=== PATIENT | female | born 1945 | race Caucasian/White ===

== ENCOUNTER 2017-10-15 09:18 | Day surgery (SDC) | payer MEDICARE, OTHER, SELFPAY ==
--- NOTE | 2017-10-13 08:08 | EKG12_ITS ---
Test Reason : PRE-OP Blood Pressure : / mmHG Vent. Rate : 057 BPM Atrial Rate : 057 BPM P-R Int : 164 ms QRS Dur : 086 ms QT Int : 438 ms P-R-T Axes : 008 001 022 degrees QTc Int : 426 ms Sinus bradycardia Otherwise normal ECG Confirmed by ADRIANNE GALAVIZ, GISELLE ([id number]), news video editor KRISH HANSEN ([id number]) on 10/14/2017 1:55:20 PM Referred By: Romain Arboleda Confirmed By:GISELLE SILVER MD
[2017-10-13 09:05] LABS: Hemoglobin 13.9 g/dl (12.0-15.0); Mean Corp Hgb Conc 33.1 g/gl (32-36); Mean Corpuscular Hgb 30.5 pg (27.0-32.0); Mean Corpuscular Volume 92.3 fL (81-99); Mean Platelet Vol. 10.2 fl (6.2-12.0); Platelet Count 269 K/mm3 (150-450); RBC Distribution Width CV 13.6 % (11.6-14.6); RBC Distribution Width SD 44.6 fl (35.1-43.9); Red Blood Count 4.55 M/mm3 (4.2-5.4); White Blood Count 4.7 K/mm3 (4.4-11.0)
[2017-10-13 09:18] LABS: Scan Indicated on CBC? Y/N NO
[2017-10-13 09:19] LABS: Anion Gap 7 (5-15); BUN 20 mg/dL (7-18); BUN/Creat Ratio 24.3 RATIO (10-20); Calcium,Total 9.3 mg/dL (8.5-10.1); Chloride 107 mmol/L (98-107); Creatinine, Serum 0.82 mg/dL (0.55-1.02); EST Glomerular Filtration Rate 73 mL/min (>60); Est Glom Filt Rate - Afr Amer 88 mL/min (>60); Glucose 96 mg/dL (74-106); Potassium 4.2 mmol/L (3.5-5.1); Sodium Level 140 mmol/L (136-145)
[2017-10-13 09:46] LABS: Pregnancy, Serum, hCG Quali. NEGATIVE Negative (0-9 Nonpreg)
[2017-10-15] VITALS (7 sets, daily range): BP systolic 137–152; BP diastolic 62–81; PULSE 45–61; RESP 14–16; TEMP 36.3–36.6; O2SAT 97–100; BMI 29.8
--- NOTE | 2017-10-15 | MASS_PTH ---
PATIENT: EFREN WHIPPLE LOC: [facility] [place] U#:[id number] AGE/SX: 72/F ROOM: RE10/15/[address]: Dr. Romain Arboleda MD : 1945 BED: DIS: 10/15/2017 SPEC #: [id number] RECD: 10/15/17 12:15 STATUS: DAVID SANCHO #: [id number] LOUISE: 10/15/17 00:[address]: Romain Arboleda DEPT: SURGICAL PATHOLOGY RECD BY: Melinda Hawkins ENTERED: 10/15/17 13:29 SP TYPE: Mass OTHR DR: Dr. Irene Rivas, DO Tissues: A - Left breast, NOS B - Left breast, NOS Procedures: Surgery Specimen Level IV Surgery Specimen Level V HEADER OPERATION: Breast, biopsy, NL PRE-OP DIAGNOSIS: Intraductal papilloma of left breast TISSUE SUBMITTED: A ? Left breast mass, short suture superior, wire lateral, B ? Left breast biopsy, clip jj lateral margin of incision MICROSCOPIC DIAGNOSIS A. Left breast mass, lumpectomy: Intraductal papilloma. Focal intraductal hyperplasia with atypia. Fibrocystic change. Intraductal hyperplasia without atypia. Fibrosis, mild chronic inflammation and associated reactive change. B. Left lateral breast, lateral margin, excision: No pathologic change. No evidence of malignancy. AM:[place] 10/17/17 COMMENT Case has been reviewed in consultation with Dr. Walden who concurs with the above diagnosis. IDC:SJ MICROSCOPIC DESCRIPTION Microscopically, the papilloma focally extends to the inked and cauterized anterior margin of excision. GROSS DESCRIPTION A - Received fresh for OT consultation labeled with the patient's name is a specimen designated left breast mass. The specimen consists of an irregular fragment of mar-yellow fibrofatty tissue measuring 4 x 4 x 1 cm and weighing 11.6 gm. The specimen is differentially inked as follows: medial ? green, lateral ? black, superior ? blue, inferior ? red, anterior ? yellow and posterior ? orange. The specimen is serially sectioned to reveal a cystic mar lesion measuring 0.8 x 0.5 x 0.5 cm. The lesion is located 0.5 cm from its closest (anterior) margin of resection. The proximity of the lesion to the closest margin is conveyed to the surgeon intraoperatively. Within the cystic lesion is a metallic tracer clip. No other mass lesions are identified. The specimen is serially sectioned and totally submitted in eight cassettes as follows: 1 ? lesion with anterior margin, 2 ? lesion with inferior margin, 3 & 4 ? lesion, 5-8 ? remainder of specimen. B - Received in fixative is one container labeled with the patient's name and designated left breast biopsy, clip jj lateral margin of incision. The specimen consists of an irregular fragment of yellow fatty tissue measuring 1.5 x 0.5 x 0.2 cm. A metallic clip is present on one surface. The surface is inked in black ink. The specimen is bisected and totally submitted in one cassette. / AM:[place] 10/16/17 TC:1 CPT: 16296, 49486, 91546
--- NOTE | 2017-10-15 10:00 | HPBI_ITS ---
SURGICAL BREAST SPECIMEN RADIOGRAPH CLINICAL: Document presence of calcifications in biopsy specimen. FINDINGS: Specimen shows presence of calcifications. Electronically Signed: Wenceslao Neil MD at 13:49 EST Tel [phone], Service support , HPBI/Breast Biopsy Specimen
--- NOTE | 2017-10-15 11:36 | DCINST_ITS ---
Discharge Diet: No Restrictions Discharge Activity: Return to Normal Activity May shower in (days): 1 Remove Dressing in (days):: 1 Additional Instructions: May remove the bulky tape dressing tomorrow. You may shower over the plastic dressing. You may leave the plastic dressing on for 3 days. He may then remove the Steri-Strips after an additional 1 week Allergies/Adverse Reactions: Allergies Penicillins Allergy (Mild, Verified 10/08/17 14:27) rash Sulfa (Sulfonamide Antibiotics) Allergy (Mild, Verified 10/08/17 14:27) rash Medications to take at Discharge levothyroxine 100 mcg tablet 0.025 mg PO QDAY tab 09/18/17 losartan 50 mg tablet 50 mg PO BID 09/18/17 mesalamine ER 0.375 gram capsule,extended release 24 hr 1.5 g PO QAM 09/18/17 metoprolol succinate ER 50 mg tablet,extended release 24 hr 50 mg PO DAILY 09/18 multivitamin capsule 1 cap PO QDAY 09/18/17 Cholecalciferol (Vitamin D3) [Vitamin D3] 2,000 unit PO DAILY 10/08/17 Pantoprazole Sodium [Protonix] 40 mg PO DAILY 10/08/17 Pravastatin Sodium 40 mg PO QHS 10/08/17 Hydrocodone Bitart/Apap 5-325 [[place] 5MG-325MG] 1 tablet PO Q6H PRN PRN 3 Days # 5 tablet 10/15/17 The following prescriptions were given: Hydrocodone Bitart/Apap 5-325 [[place] 5MG-325MG] 1 tablet PO Q6H PRN PRN 3 Days # 5 tablet PRN Reason: Pain Primary Care Physician: Irene Rivas DO [Primary Care Provider] - Please Follow Up With: Romain Arboleda MD - [phone] When: Please call for an appointment to be seen in approximately 10 days
--- NOTE | 2017-10-15 11:38 | OP.PCM_ITS ---
Problem List (1) Intraductal papilloma of left breast Status: Acute Report of Operation Date of Procedure: 10/15/17 Pre-Operative Diagnosis: Left breast 3 o'clock intraductal papilloma Post-Operative Diagnosis: Same Surgery/Procedure Performed:: Stereotactic wire localization left breast with subsequent excisional biopsy Description of Surgical Findings:: Timeout and informed consent was obtained 72-year-old female was taken to the stereotactic room. She was placed prone on the table. The left breast was placed in a lateral medial view. A marking clip in question was rapidly identified. Stereotactic images were obtained. A single target site was selected. The breast was prepped with Betadine. 1% lidocaine was used as local anesthetic. 20-gauge [facility] needle was advanced to depth +15 mm. Follow-up on fast and cc view was obtained demonstrating good localization. There was no apparent complication and she tolerated the procedure well. She is subsequent taken the operating for planned definitive fixation. Patient was taken to the operating room. She was placed on the table. General general anesthesia. The left breast was sterilely prepped and draped. A curvilinear incision was made in the lateral aspect of the areola sharp dissection carried down through the substance tissue the wire was identified. The tissue close to the tip of the wire was circumferentially completely dissected free with electrocautery. Complete hemostasis was intact. Specimen mammograms obtained demonstrating the previously placed marking clip to be centered within the specimen. There were microcalcifications associated with specimen as well. Palpation and visual inspection failed to reveal any residual tissue. The wound was closed with deep layer of interrupted 3-0 Vicryl. The skin edges proximate interrupted 4-0 Monocryl subdermal stitches. Skin prep Steri-Strips Telfa OpSite bulky dry dressings applied. The sandra- incisional area was anesthetized with 30 cc of 0.25% Marcaine. Sponge instrument and needle counts were reported to the surgeon be correct. Specimens in the the breast mass. Drains none. Blood loss minimal. No complications. Romain Arboleda M.D., F.A.C.S.
[2017-10-15] MEDS: Bupivacaine 0.25% 30 ML Vial (12:01)
== END 2017-10-15 14:17 | disposition home or self-care (01) ==
LOC: SDC 09:19 → AC 09:20
PROVIDERS: Family Provider Internal Medicine; PCP Internal Medicine; Visit Provider Surgery
PROC: (CPT 19125; principal; 2017-10-15 11:15)
DX: D24.2 Benign neoplasm of left breast (principal); N60.92 Unspecified benign mammary dysplasia of left breast; N60.12 Diffuse cystic mastopathy of left breast; I49.3 Ventricular premature depolarization; I10 Essential (primary) hypertension; K51.90 Ulcerative colitis, unspecified, without complications; K21.9 Gastro-esophageal reflux disease without esophagitis; E78.00 Pure hypercholesterolemia, unspecified; E89.0 Postprocedural hypothyroidism; M19.90 Unspecified osteoarthritis, unspecified site; Z79.899 Other long term (current) drug therapy
CPT/HCPCS: 19125; 19281; 36415; 76098; 80048; 84703; 85027; 88305; 88307; 93005; J7120

== ENCOUNTER → 2017-12-24 09:58 | Outpatient (CLI) | payer MEDICARE, OTHER, SELFPAY ==
--- NOTE | 2017-12-24 10:10 | US_ITS ---
STUDY: RENAL ULTRASOUND - COMPLETE REASON FOR EXAM: Female, 72 years old. Renal cysts. TECHNIQUE: Ultrasound evaluation of the kidneys was performed with real-time and static avalos-scale imaging. COMPARISON: 12/24/2016. FINDINGS: RIGHT KIDNEY: Normal location of the right kidney, which is normal in size. The right kidney measures 14.5 x 5.4 x 6.5 cm. There is a normal cortex of the right kidney. The renal cortex measures 1.6 cm. Multiple right renal cysts are seen measuring as much as 7.8 cm, grossly stable. There are no right renal calculi. There is no right hydronephrosis. DISTAL RIGHT URETER: There is non-visualization of the distal right ureter. There is no demonstrated right ureterovesical junction calculus. There is no demonstrated right ureteral jet. LEFT KIDNEY: Normal location of the left kidney, which is normal in size. The left kidney measures 10.5 x 4.3 x 5.3 cm. There is a normal cortex of the left kidney. The renal cortex measures 1.4 cm. Multiple right renal cysts are seen measuring as much as 2.0 cm, grossly stable. There are no left renal calculi. There is no left hydronephrosis. DISTAL LEFT URETER: There is non-visualization of the distal left ureter. There is no demonstrated left ureterovesical junction calculus. There is no demonstrated left ureteral jet. BLADDER: Incompletely distended. There is a normal wall thickness of the distended urinary bladder. There is no demonstrated mass within the urinary bladder. There are no demonstrated bladder calculi. US/Kidney and Bladder IMPRESSION: Essentially stable simple renal cysts, which do not necessarily need additional follow-up. No acute abnormalities. Electronically Signed: Joel Gray MD at 19:16 EDT , Service support ,
[2017-12-24 11:01] LABS: Albumin, Serum 3.7 g/dL (3.2-5.0); BUN 19 mg/dL (7-18); BUN/Creat Ratio 24.6 RATIO (10-20); Calcium,Total 9.2 mg/dL (8.5-10.1); Chloride 106 mmol/L (98-107); Creatinine, Serum 0.77 mg/dL (0.55-1.02); EST Glomerular Filtration Rate 79 mL/min (>60); Est Glom Filt Rate - Afr Amer 95 mL/min (>60); Glucose 99 mg/dL (74-106); Phosphorus 2.8 mg/dL (2.5-4.9); Potassium 4.4 mmol/L (3.5-5.1); Sodium Level 139 mmol/L (136-145)
== END ==
PROVIDERS: Family Provider Internal Medicine; PCP Internal Medicine; Visit Provider Internal Medicine Nephrology
DX: N28.1 Cyst of kidney, acquired (principal)
CPT/HCPCS: 36415; 76770; 80069

== ENCOUNTER → 2017-12-30 10:14 | Outpatient (CLI) | payer MEDICARE, OTHER, SELFPAY ==
--- NOTE | 2017-12-30 10:30 | BD_ITS ---
STUDY: DUAL ENERGY X-RAY ABSORPTIOMETRY / DXA REASON FOR EXAM: Female, 72 years old. Postmenopausal female. History of hormone therapy and intermittent steroid use. TECHNIQUE: Bone Mineral Density (BMD) measurements of lumbar spine and bilateral hips were obtained. COMPARISON: April 23, 2012. FINDINGS: Lumbar Spine (L1-L3): g/cm2 (0.969) / T-score (-1.9) / Z-score (-0.3) Findings are suggestive of osteopenia with a moderate fracture risk. Left Femur Total: g/cm2 (0.934) / T-score (-0.6) / Z-score (0.9) Left Femoral Neck: g/cm2 (0.870) / T-score (-1.2) / Z-score (0.5) Right Femur Total: g/cm2 (0.894) / T-score (-0.9) / Z-score (0.6) Right Femoral Neck: g/cm2 (0.870) / T-score (-1.2) / Z-score (0.5) The T-Scores on the most recent prior examination were: Lumbar Spine (L1-L4): There has been worsening of bone density since the previous examination of -7%. Left Femur Total: There is a worsening of bone mineral density of -1.7%. Right Femur Total: There is a worsening of bone mineral density of -4.7%. BD/Dexa Bone Density Study IMPRESSION: The patient is considered osteopenic as outlined below according to World Prakash Organization (WHO) criteria with a moderate fracture risk. There has been worsening of bone density since the previous examination. Reference Information: The T-score is the number of standard deviations above or below the standard which is normal for young adults at their peak bone mineral density. The World Health Organization (WHO) interprets the T-scores as follows: Above -1 Normal bone density Between -1 and -2.5 Osteopenia Equal to / or below -2.5 Osteoporosis As a practical clinical guideline, osteopenia may be graded as follows: Mild -1 through -1.5 Moderate -1.6 through -2.0 Severe -2.1 through -2.4 The Z-score is the number of standard deviations above or below age-matched controls. A Z-score of less than -1.5 would be considered abnormal. References: 1. NIH Osteoporosis and Related Bone Diseases http://www.osteo.org 2. International Society for Clinical Densitometry http://www.iscd.org 3. National Osteoporosis Foundation http://www.nof.org Electronically Signed: Dougie Garcia DO at 18:22 EDT Tel [phone], Service support ,
== END ==
PROVIDERS: Family Provider Internal Medicine; PCP Internal Medicine; Visit Provider Internal Medicine
DX: Z78.0 Asymptomatic menopausal state (principal)
CPT/HCPCS: 77080

== ENCOUNTER → 2019-01-19 09:07 | Outpatient (CLI) | payer MEDICARE, OTHER, SELFPAY ==
--- NOTE | 2019-01-19 09:10 | US_ITS ---
STUDY: RENAL ULTRASOUND - COMPLETE REASON FOR EXAM: Female, 73 years old. PCOS TECHNIQUE: Ultrasound evaluation of the kidneys was performed with real-time and static avalos-scale imaging. COMPARISON: Prior study of 12/24/2017 FINDINGS: RIGHT KIDNEY: Normal location of the right kidney, which is normal in size. The right kidney measures 14.2 x 5.4 x 5.1 cm. There is a normal cortex of the right kidney. The renal cortex measures 1.0 cm. There are multiple right renal cysts. The largest is located in the inferior pole measuring 8.3 x 7.2 x 6.7 cm. The second largest is located in the superior pole measuring 2.5 x 2.3 x 2.0 cm. There are no right renal calculi. There is no right hydronephrosis. DISTAL RIGHT URETER: There is non-visualization of the distal right ureter. There is no demonstrated right ureterovesical junction calculus. There is a visualized right ureteral jet. LEFT KIDNEY: Normal location of the left kidney, which is normal in size. The left kidney measures 10.1 x 4.3 x 5.6 cm. There is a normal cortex of the left kidney. The renal cortex measures 1.1 cm. 2 left renal cysts are noted, one located in the upper pole measuring 2.5 x 2.0 x 1.8 cm, and a second in the superior pole measuring 1.4 x 1.3 x 1.0 cm. There is a 0.5 x 0.4 x 0.3 cm calculus of the lower pole. There is no left hydronephrosis. DISTAL LEFT URETER: There is non-visualization of the distal left ureter. There is no demonstrated left ureterovesical junction calculus. There is a visualized left ureteral jet. BLADDER: The distended urinary bladder has a volume of 561 ml. There is a normal wall thickness of the distended urinary bladder. Bladder wall thickness is 4.4 mm. There is no demonstrated mass within the urinary bladder. There are no demonstrated bladder calculi. US/Kidney and Bladder IMPRESSION: Bilateral renal cysts, similar to the previous study. Nonobstructing left nephrolithiasis. Electronically Signed: Huber Jimenez MD at 23:29 EDT , Service support ,
== END ==
PROVIDERS: Family Provider Internal Medicine; PCP Internal Medicine; Referring Provider Internal Medicine; Visit Provider Internal Medicine
DX: E28.2 Polycystic ovarian syndrome (principal)
CPT/HCPCS: 76770

== ENCOUNTER → 2019-07-19 09:43 | Outpatient (CLI) | payer MEDICARE, OTHER, SELFPAY ==
--- NOTE | 2019-07-19 09:51 | RAD_ITS ---
HISTORY: LBP X 3 MONTHS, NO TRAUMA TECHNIQUE: Lumbar spine 5 views Number of images including paperwork: 5 COMPARISON: 02/15/2016 FINDINGS: VERTEBRAE: No acute fracture. Bilateral L5 spondylolysis. VERTEBRAL ALIGNMENT: No traumatic subluxation. Approximate 1 cm of anterolisthesis of L5 on S1. DISKS AND JOINTS: Advanced discogenic degenerative changes at L5-S1. Mild discogenic degenerative changes elsewhere in the lumbar spine. Facet arthropathy, most severe from L4-S1. SOFT TISSUES: Vascular calcifications. RAD/L/S Spine Min 4 Views IMPRESSION: 1. No acute osseous abnormality. 2. Bilateral L5 spondylolysis with spondylolisthesis in degenerative changes at L5-S1. Findings are similar to previous. at 6799 Reported and signed by: Katherine Hong MD Electronically Signed: Katherine Hnog MD at 23:09 EST Tel , Service support ,
--- NOTE | 2019-07-19 09:52 | RAD_ITS ---
HISTORY: TAILBONE PAIN X 3 MONTHS, NO TRAUMA ADDITIONAL HISTORY: None provided. COMPARISON: 02/15/2016 TECHNIQUE: Sacrum and coccyx 3 views Number of images including paperwork: 3 FINDINGS: BONES: No acute fracture. Bilateral L5 spondylolysis. JOINTS: No traumatic subluxation. Anterolisthesis of L5 on S1 measuring about 12 mm, similar to previous. Degenerative changes at L5-S1 appear similar. Moderate degenerative changes of the sacroiliac joints. SOFT TISSUES: No distinct foreign body. RAD/Sacrum-Coccyx min 2 Views IMPRESSION: 1. Degenerative changes without acute osseous abnormality. 2. Bilateral L5 spondylolysis with spondylolisthesis, similar to previous. at 2239 Reported and signed by: Katherine Hong MD Electronically Signed: Katherine Hong MD at 22:39 EST Tel , Service support ,
== END ==
PROVIDERS: Family Provider Internal Medicine; PCP Internal Medicine; Referring Provider Internal Medicine; Visit Provider Internal Medicine
DX: M53.3 Sacrococcygeal disorders, not elsewhere classified (principal)
CPT/HCPCS: 72110; 72220

== ENCOUNTER → 2019-08-26 07:31 | Outpatient (CLI) | payer MEDICARE, OTHER, SELFPAY ==
--- NOTE | 2019-08-26 08:56 | BI_ITS ---
MAMMOGRAPHY - BILATERAL SCREENING 3-D TOMOSYNTHESIS REASON FOR EXAM: Female, 73 years old. Routine annual screening. PERTINENT HISTORY: No significant family history. TECHNIQUE: 2-D mammograms and 3-D Tomosynthesis of the breast (s) were performed. CAD was performed. COMPARISON: September 10, 2017, July 08, 2016 FINDINGS: The breast composition is heterogeneously dense that can obscure small breast masses. Scattered benign calcifications are seen. No dense spiculated masses or suspicious microcalcifications are identified. No architectural distortion is identified. There is no skin thickening or retraction. Stable lymph nodes. There has been no significant change since the prior study. BI/SCREEN MAMM (CAD) W/OLIMPIA BILAT IMPRESSION: No mammographic signs of malignancy. Routine yearly mammograms recommended. ASSESSMENT CATEGORY: BIRADS Category 2: Benign. A letter regarding these results will be sent to the patient by the facility within 30 days. FOLLOW UP RECOMMENDATION: Yearly follow up mammogram recommended. (A) Approximately 10% of breast cancers are not detected by mammography. A normal mammogram should not delay biopsy of a clinically suspicious abnormality. Electronically Signed: Chandana Pérez MD at 13:09 EST , Service support ,
== END ==
PROVIDERS: Family Provider Internal Medicine; PCP Internal Medicine; Referring Provider Internal Medicine; Visit Provider Internal Medicine
DX: Z12.31 Encounter for screening mammogram for malignant neoplasm of breast (principal); Z78.0 Asymptomatic menopausal state
CPT/HCPCS: 77063; 77067

== ENCOUNTER 2019-10-19 15:09 | Outpatient (RCR) | payer MEDICARE, OTHER, SELFPAY ==
[2019-10-19 17:33] LABS: Absolute Lymphocyte Count 1.69 X10^3/uL (0.83-4.51); Absolute Neutrophil Count 4.5 X10^3/uL (2.0-7.7); Basophil# 0.04 X10^3/uL; Basophil% 0.6 % (0-1); Eosinophil# 0.18 X10^3/uL; Eosinophils% 2.5 % (0-5); Hematocrit 42.8 % (37-47); Hemoglobin 13.8 g/dL (12.0-15.0); Lymphocyte # 1.69 X10^3/ul (4.0); Lymphocyte % 23.9 % (19-41); Mean Corp Hgb Conc 32.2 g/dL (32-36); Mean Corpuscular Hgb 30.9 pg (27.0-32.0); Mean Corpuscular Volume 95.7 fL (81-99); Monocyte% 8.5 % (0-10); NRBC Flagged by Analyzer 0 % (0-5); Neutrophil # 4.53 X10^3/uL (2.7-7.7); Neutrophil % 64.2 % (47-70); Platelet Count 323 K/mm3 (150-450); RBC Distribution Width CV 13.1 % (11.6-14.6); RBC Distribution Width SD 45.9 fl (35.1-43.9); Red Blood Count 4.47 M/mm3 (4.2-5.4); White Blood Count 7.1 K/mm3 (4.4-11.0)
[2019-10-19 17:55] LABS: AST(SGOT) 12 U/L (15-37); Alanine Aminotransfer ALT/SGPT 26 U/L (13-56); Albumin, Serum 3.8 g/dL (3.2-5.0); Alkaline Phosphatase 65 U/L (45-117); Bilirubin, Direct 0.09 mg/dL (0.00-0.30); Globulin 3.6 g/dL (2.2-4.2); Protein, Total 7.4 g/dL (6.4-8.2)
== END 2019-10-19 18:00 | disposition home or self-care (01) ==
LOC: MTLAB 15:09
PROVIDERS: PCP Internal Medicine; Referring Provider Internal Medicine Gastroenterology; Visit Provider Internal Medicine Gastroenterology
DX: K51.90 Ulcerative colitis, unspecified, without complications (principal); R19.7 Diarrhea, unspecified
CPT/HCPCS: 36415; 80076; 85025

== ENCOUNTER → 2020-08-30 11:14 | Outpatient (CLI) | payer MEDICARE, OTHER, SELFPAY ==
--- NOTE | 2020-08-30 11:17 | BI_ITS ---
MAMMOGRAPHY - BILATERAL SCREENING REASON FOR EXAM: Female, 74 years old. Routine annual screening examination. PERTINENT HISTORY: FAM HX OF PATERNAL GRANDMOTHER @ AGE 80''S - LT EXC BX 1985 - LT EXC BX 10/2017 - BILAT KERATOSIS MARKED TECHNIQUE: Digital bilateral breast olimpia (3D mammographic acquisition) in the CC and MLO projections. 2-D mediolateral oblique (MLO) and craniocaudad (CC) views of both breasts were obtained. CAD: Full Field Digital Mammography with Computer Added Detection was performed. COMPARISON: 08/26/2019 and 09/10/2017 FINDINGS: Breast Composition: The breasts are heterogeneously dense, which may obscure small masses. There are no dominant masses or suspicious calcifications. No other significant abnormalities are identified. BI/SCREEN MAMM (CAD) W/OLIMPIA BILAT IMPRESSION: Stable bilateral screening mammogram. Yearly follow-up mammogram recommended. (A) ASSESSMENT CATEGORY: BIRADS Category 2: Benign. A letter regarding these results will be sent to the patient by the facility within 30 days. Approximately 10% of breast cancers are not detected by mammography. A normal mammogram should not delay biopsy of a clinically suspicious abnormality. [id number] Electronically Signed: Rosalino Rod, at 15:07 EST Tel , Service support ,
--- NOTE | 2020-08-30 11:18 | BD_ITS ---
STUDY: DUAL ENERGY X-RAY ABSORPTIOMETRY / DXA REASON FOR EXAM: Female, 74 years old. REGISTERED NURSE SUPERVISOR-SURGICAL EARLY AT 42 YRS OLD -- HX OF HRT -- HX OF TAKING PREDNISONE FOR COLITIS -- TAKES SYNTHROID -- DOES MODERATE AMOUNT OF EXERCISE -- DOREEN OF 2 INCHES TECHNIQUE: Bone Mineral Density (BMD) measurements of lumbar spine and bilateral hips were obtained. COMPARISON: Comparison is made with prior examination dated 04/23/2012. FINDINGS: Lumbar Spine (L1-L4): g/cm2 (1.003) / T-score (-1.6) / Z-score (0.1) Findings are suggestive of osteopenia with a moderate fracture risk. Left Femur Total: g/cm2 (0.907) / T-score (-0.8) / Z-score (0.8) Left Femoral Neck: g/cm2 (0.869) / T-score (-1.2) / Z-score (0.6) Right Femur Total: g/cm2 (0.870) / T-score (-1.1) / Z-score (0.5) Right Femoral Neck: g/cm2 (0.860) / T-score (-1.3) / Z-score (0.5) The T-Scores on the most recent prior examination were: Lumbar Spine (L1-L4): There has been worsening of bone density since the previous examination. Left Femur Total: which represents a worsening of 2.9%. Right Femur Total: which represents a worsening of 2.7%. BD/Dexa Bone Density Study IMPRESSION: The patient is considered osteopenic as outlined below according to World Prakash Organization (WHO) criteria with a moderate fracture risk. There has been worsening of bone density since the previous examination. Reference Information: The T-score is the number of standard deviations above or below the standard which is normal for young adults at their peak bone mineral density. The World Health Organization (WHO) interprets the T-scores as follows: Above -1 Normal bone density Between -1 and -2.5 Osteopenia Equal to / or below -2.5 Osteoporosis As a practical clinical guideline, osteopenia may be graded as follows: Mild -1 through -1.5 Moderate -1.6 through -2.0 Severe -2.1 through -2.4 The Z-score is the number of standard deviations above or below age-matched controls. A Z-score of less than -1.5 would be considered abnormal. References: 1. NIH Osteoporosis and Related Bone Diseases www osteo.org 2. International Society for Clinical Densitometry www iscd.org 3. National Osteoporosis Foundation www nof.org Electronically Signed: Wenceslao Neil, at 14:09 EST , Service support ,
== END ==
PROVIDERS: PCP Internal Medicine; Referring Provider Internal Medicine; Visit Provider Internal Medicine
DX: Z78.0 Asymptomatic menopausal state (principal); Z12.31 Encounter for screening mammogram for malignant neoplasm of breast
CPT/HCPCS: 77063; 77067; 77080

== ENCOUNTER → 2021-01-15 10:20 | Outpatient (CLI) | payer MEDICARE, OTHER, SELFPAY ==
[2021-01-03 12:49] VITALS: BMI 30.2
--- NOTE | 2021-01-15 10:21 | STEWCON_ITS ---
Reason For Study: Chest Pain; Fatigue Stress Results Protocol: Diego Protocol WITH DEFINITY Maximum Predicted HR: 147 bpm Target HR: 125 bpm % Maximum Predicted HR: 96 % DurationHeart Rate Stage (mm:ss) (bpm) BP Comment Baseline 55 110/72No Chest Pain; 3 ML Diluted Definity Diego Protocol Stage I 3:00 98 126/70No Chest Pain Diego Protocol Stage II 3:00 110 132/72No Chest Pain Diego Protocol Stage III 1:30 141 / No Chest Pain; Right Ankle Pain Recovery 69 122/78No Chest Pain Stress Duration: 7:30 mm:ss Maximum Stress HR: 141 bpm METS: 10 Baseline Echocardiogram Findings Stress Echo Wall motion Data Resting WM Intermediate WM Stress WM ECHO/Stress Test Echo W/Contrast Interpretation Summary Exercise stress echo. 75-year-old man with a history of hypertension, hyperlipidemia, family history of coronary artery disease. Stress echo. Resting electrocardiogram demonstrates sinus bradycardia with a rate of 56 bpm normal intervals are noted resting blood pressures 110/72 mmHg. The patient exercised according to t he regular Diego protocol for a total duration of 7 minutes and 30 seconds. Patient completed 1 minute and 30 seconds to stage III of the Diego protocol the maximum heart rate attained was 142 bpm which was 96% of maximum predicted heart rate the maximum workload was 10.1 metabolic equivalent s. At rest and during peak exercise no EKG changes were noted to suggest ischemia. The peak blood pre ssure was 152/80 mmHg with a rate pressure product of 14,520. Stress echocardiographic images. Resting and stress echocardiographic images were obtained with Definity enhance ment. The resting estimated ejection fraction was 55% with no wall motion abnormalities present. The stress echocardiogram demonstrated thickening of all quintana and reduction of left ventr icular cavity size. No wall motion abnormalities were noted to suggest ischemia. Conclusion: Exercise stress echo with no evidence of ischemia at a moderate to high workloa d. Good functional aerobic capacity. No arrhythmias noted. No angina present. Ordering Physician: Bennett Sharpe Referring Physician: Irene Rivas Performed By: Carlotta Turk, SAM, RVT
== END ==
PROVIDERS: PCP Internal Medicine; Referring Provider Internal Medicine Cardiovascular Disease; Visit Provider Internal Medicine Cardiovascular Disease
DX: R07.9 Chest pain, unspecified (principal); R53.83 Other fatigue
CPT/HCPCS: 93017; 93350; Q9957; A4216; C8928

== ENCOUNTER → 2021-08-03 15:20 | Outpatient (CLI) | payer MEDICARE, OTHER, SELFPAY ==
--- NOTE | 2021-08-03 15:22 | RAD_ITS ---
INDICATION: CHEST PAIN EXAMINATION/TECHNIQUE: X-RAY - XR Chest 2 Views COMPARISON: 12/02/2016. FINDINGS: The lungs are clear. The cardiomediastinal silhouette is unremarkable. No pleural effusion or pneumothorax. Degenerative changes of the thoracic spine. RAD/Chest PA and Lateral IMPRESSION: No acute radiographic abnormalities. Electronically Signed: Ashish Francois MD at 17:08 EST Tel , Service support ,
[2021-08-03 18:03] LABS: CPK Total, Creatine Kinase 54 U/L (26-192); CRP 4.31 mg/L (0.0-3.0); Troponin-I HS 5 pg/mL (3.0-54.0)
[2021-08-06 15:08] LABS: Creatine Kinase MB 0 % (0-3); Creatine Kinase MM 100 % (97-100); Creatine Kinase,Total,Serum 50 U/L (32-182); Macro I 0 % (Not Observed); Macro II 0 % (Not Observed)
[2021-08-06 20:54] LABS: Creatine Kinase BB 0 % (0)
== END ==
PROVIDERS: PCP Internal Medicine; Referring Provider Nurse Practitioner; Visit Provider Nurse Practitioner
DX: R07.89 Other chest pain (principal)
CPT/HCPCS: 36415; 71046; 82550; 82552; 84484; 86140

== ENCOUNTER → 2021-08-06 15:03 | Outpatient (CLI) | payer MEDICARE, OTHER, SELFPAY ==
--- NOTE | 2021-08-06 15:05 | US_ITS ---
STUDY: ABDOMINAL ULTRASOUND - RIGHT UPPER QUADRANT REASON FOR VISIT: Female, 75 years old. ABDOMEN PAIN ABD PAIN RUQ TECHNIQUE: Ultrasound evaluation of the right upper quadrant was performed with real-time and static medina-scale imaging. TECHNICAL QUALITY: Adequate. COMPARISON: 01/19/2019 FINDINGS: Liver: There is increased echogenicity consistent with fatty infiltration. The bile ducts are within normal limits. There is hepatic color flow. The direction of portal flow is hepatopetal. There is no demonstrated mass lesion. Gallbladder: Normal distended gallbladder. The gallbladder wall measures 4.6 mm. There is a negative sonographic Anthony''s sign. There is no pericholecystic fluid. There are multiple echogenic structures within the gallbladder, consistent with multiple gallstones. Common Bile Duct (C.B.D.): The common bile duct measures ( in mm): 8 Pancreas: Normal size of the head, body of the pancreas. There is normal echogenicity of the pancreas. There is no demonstrated pancreatic mass or cyst. Right Kidney: Normal size of the right kidney. The right kidney measures 15.4 cm. . Normal renal cortex. There is a cyst. In the upper aspect of the kidney and this measures 31 x 34 mm. Inferior lesion measures 92x 80 mm. There is no right hydronephrosis. Aorta: It is not visualized. There is too much overlying bowel gas. . US/Gallbladder IMPRESSION: Fatty liver. GALLSTONES Bilateral renal cysts. Electronically Signed: Erik Fregoso MD at 17:45 EST , Service support ,
== END ==
PROVIDERS: PCP Internal Medicine; Referring Provider Nurse Practitioner; Visit Provider Nurse Practitioner
DX: R10.11 Right upper quadrant pain (principal)
CPT/HCPCS: 76705

== ENCOUNTER 2021-08-16 10:48 | Day surgery (SDC) | payer MEDICARE, OTHER, SELFPAY ==
[2021-08-15 12:56] LABS: Absolute Lymphocyte Count 1.46 X10^3/uL (0.83-4.51); Absolute Neutrophil Count 3.5 X10^3/uL (2.0-7.7); Basophil# 0.03 X10^3/uL; Basophil% 0.5 % (0-1); Eosinophil# 0.13 X10^3/uL; Eosinophils% 2.4 % (0-5); Hematocrit 40.4 % (37-47); Hemoglobin 13.3 g/dL (12.0-15.0); Lymphocyte # 1.46 X10^3/ul (0.83-4.51); Lymphocyte % 26.4 % (19-41); Mean Corp Hgb Conc 32.9 g/dL (32-36); Mean Corpuscular Hgb 31.3 pg (27.0-32.0); Mean Corpuscular Volume 95.1 fL (81-99); Mean Platelet Vol. 10.1 fl (6.2-12.0); Monocyte# 0.45 X10^3/uL; Monocyte% 8.1 % (0-10); NRBC Flagged by Analyzer 0 % (0-5); Neutrophil # 3.45 X10^3/uL (2.7-7.7); Neutrophil % 62.4 % (47-70); Platelet Count 269 K/mm3 (150-450); RBC Distribution Width CV 13.1 % (11.6-14.6); RBC Distribution Width SD 44.3 fl (35.1-43.9); Red Blood Count 4.25 M/mm3 (4.2-5.4); White Blood Count 5.5 K/mm3 (4.4-11.0)
[2021-08-15 13:19] LABS: ALB/GLOB Ratio 0.9 RATIO (0.9-2.4); AST(SGOT) 12 U/L (15-37); Alanine Aminotransfer ALT/SGPT 23 U/L (13-56); Albumin, Serum 3.4 g/dL (3.2-5.0); Alkaline Phosphatase 73 U/L (45-117); Anion Gap 4 (5-15); BUN 18 mg/dL (7-18); BUN/Creat Ratio 19.8 RATIO (10-20); Calcium,Total 9.4 mg/dL (8.5-10.1); Chloride 108 mmol/L (98-107); Creatinine, Serum 0.91 mg/dL (0.55-1.02); EST Glomerular Filtration Rate 64 mL/min (>60); Est Glom Filt Rate - Afr Amer 78 mL/min (>60); Globulin 3.8 g/dL (2.2-4.2); Glucose 109 mg/dL (74-106); Lipase 134 U/L (73-393); Potassium 4.7 mmol/L (3.5-5.1); Protein, Total 7.2 g/dL (6.4-8.2); Sodium Level 140 mmol/L (136-145)
[2021-08-15 13:25] LABS: Thyroid Stim Hormone (TSH) 0.94 uIU/mL (0.358-3.74)
[2021-08-16] VITALS (10 sets, daily range): BP systolic 127–175; BP diastolic 69–85; PULSE 59–73; RESP 12–16; TEMP 36.1–36.6; O2SAT 93–98; BMI 29.8
--- NOTE | 2021-08-16 | GALL_PTH ---
PATIENT: EFREN WHIPPLE [place] [facility] [id number] AGE/SX: 75/F ROOM: RE08/16/[address]: Dr. Romain Arboleda MD : 1945 BED: DIS: 08/16/2021 SPEC #: [id number] RECD: 08/17/21 08:10 STATUS: DAVID SANCHO #: [id number] LOUISE: 08/16/21 00:[address]: Romain Arboleda DEPT: SURGICAL PATHOLOGY RECD BY: Nagi Smith ENTERED: 08/17/21 10:22 SP TYPE: RUBI SMITH DR: Dr. Irene Rivas DO Tissues: Gallbladder, NOS Procedures: Surgery Specimen Level III HEADER OPERATION: Laparoscopic cholecystectomy with IOC PRE-OP DIAGNOSIS: Cholelithiasis with chronic cholecystitis, biliary colic TISSUE SUBMITTED: Gallbladder MICROSCOPIC DIAGNOSIS Gallbladder, cholecystectomy: Chronic cholecystitis and cholelithiasis. Focal intestinal metaplasia. AM:tennille 08/20/2021 MICROSCOPIC DESCRIPTION Slides are reviewed. GROSS DESCRIPTION Received is one container labeled with the patient's name and designated gallbladder. The specimen consists of a gallbladder measuring 9 x 3 x 3 cm. The external surface is smooth and glistening. Focally, it is granular, hemorrhagic and contains cautery artifact. The lumen of the gallbladder contains yellow-green mucoid bile and multiple yellow to black calculi ranging in size from 1 to 3 cm in greatest dimension. The mucosa is bile-stained and without any mass lesions. The gallbladder wall averages 0.2 cm in thickness and is free of mass lesions. Monorail Operator sections of the gallbladder and the cystic duct at margin of resection are submitted in one cassette. / AM:tennille 08/17/21 TC:3 CPT: 84668
[2021-08-16] MEDS: Lactated Ringers 1,000 ML 15 ML IV ×2 (10:50→16:00)
--- NOTE | 2021-08-16 10:53 | HP.PCM_ITS ---
History and Physical Date of Admission: 08/16/21 Intake Visit Reasons: GALLSTONES Chief Complaint: gallstones Automation Tender Required: No Is patient in pain?: No Allergies Penicillins Allergy (Mild, Verified 08/09/21 08:13) rash Sulfa (Sulfonamide Antibiotics) Allergy (Mild, Verified 08/09/21 08:13) rash pravastatin Adverse Reaction (Verified 08/09/21 08:13) myalgia Medications losartan 50 mg tablet 50 mg PO BID 09/18/17 [History Confirmed 08/09/21] metoprolol succinate 50 mg tablet,extended release 24 hr 50 mg PO DAILY 09/18/17 [History Confirmed 08/09/21] levothyroxine 25 mcg capsule 25 mcg PO DAILY 12/19/20 [History Confirmed 08/09/21] mercaptopurine 50 mg tablet 50 mg PO DAILY 12/19/20 [History Confirmed 08/09/21] mesalamine 0.375 gram capsule,extended release 24 hr 0.375 gm PO QAM cap 12/19/20 [History Confirmed 08/09/21] omeprazole 20 mg capsule,delayed release 20 mg PO DAILY 12/19/20 [History Confirmed 08/09/21] cholecalciferol (vitamin D3) 25 mcg (1,000 unit) capsule 25 mcg PO DAILY 01/03/21 [History Confirmed 08/09/21] ezetimibe 10 mg tablet 10 mg PO DAILY 08/07/21 [History Confirmed 08/09/21] Post menopausal: Yes PFSH Medical History Back pain Essential (primary) hypertension GERD (gastroesophageal reflux disease) Hyperlipidemia Hypothyroidism Intraductal papilloma of left breast Multiple premature ventricular complexes Osteoarthritis Ulcerative colitis Surgical History H/O laminectomy History of colonoscopy History of hysterectomy History of left heart catheterization (10/08/02) History of lumpectomy History of partial thyroidectomy Family History Father Diabetes Heart disease Hypertension Sudden cardiac Mother Diabetes Heart disease Hypertension CAD (coronary artery disease) CABG Brother CAD (coronary artery disease), Onset Age: 40 CABG Social History Smoking Status: Never smoker alcohol intake: never substance use type: does not use HPI HPI HPI: EFREN WHIPPLE, is a 75 F who presents to the office today for surgical consultation regarding atypical chest pain/epigastric pain. The patient is referred by GREGORY Spain?C and a written copy of my surgical consult and recommendations will be returned to her. The patient presented to cardiology with a complaint of 3 separate episodes of bandlike pain beneath her ribs and right breast. Troponin was negative. A exercise stress test of December 2020 showed no evidence of ischemia at moderate to high workload. It was felt that likely the patient's discomfort was not cardiac in etiology. A gallbladder ultrasound of August 06, 2021 demonstrates a normal stented gallbladder with gallbladder wall measuring 4.6 mm which is thickened. No pericholecystic fluid. Multiple gallstones identified. Common bile duct somewhat enlarged at 8 mm. In addition there is stated to be a kidney cyst measuring 31 x 34 mm in the upper aspect. There is felt to be a 92 x 80 mm lesion in the lower aspect. I do not have any immediate LFTs available. ROS General General: No weight change, appetite, fatigue, colon cancer, breast cancer or weakness HEENT HEENT: No difficulty swallowing, eye injury, eye surgery, swollen glands or hoarseness Endo Endocrine: No thyroid disease, diabetes mellitus, thyroid cancer, Hair loss, heat intolerance or cold intolerance Skin Skin: No rash or changing moles Musc Musculoskeletal: Yes arthritis; No back problems, rheumatoid arthritis, gout or joint pain Cardio Cardiovascular: Yes high blood pressure; No murmur, pacemaker, heart disease, atrial fibrillation, heart attack, heart stent, palpitations, shortness of breat with exertion or chest pain Psych Psychiatric: No depression, anxiety or hearing voices Resp Respiratory: No shortness of breath, No sleep apnea, No cough, No COPD, No asthma, No emphysema and No wheezing Gastro Gastrointestinal: Yes abdominal pain, No nausea or vomiting, No diarrhea, No constipation, No blood in stool, Yes acid reflux, No hemorrhoids, No ulcers, Yes gallbladder problem and No black,tarry stools Sharad Hematologic: No blood thinners, No blood disorders, No bleeding, No anemia and No blood clots Neuro Neurologic: No system reviewed and no additional complaints, except as documented, No as per HPI, No abnormal gait, No abnormal hearing, No abnormal movements, No abnormal speech, No behavioral changes, No burning sensations, No confusion, No convulsions, No disequilibrium, No dizziness, No localized weakness, No frequent falls, No headache(s), No lack of coordination, No loss of vision, No memory loss, No numbness, No other visual disturbances, No radicular pain, No restless legs, No sensory deficit, No syncope, No tingling, No tremor(s), No weakness and No other Exam Const General: cooperative, healthy appearing, comfortable and no acute distress Nutritional Appearance: overweight Orientation: alert and awake HENMT Head: normal to inspection Neck Neck: normal visual inspection Resp Effort & Inspection: normal respiratory effort Auscultation: clear to auscultation bilaterally Cardio Rate: regular rate GI Palpation: soft and no hepatosplenomegaly Auscultation: normal bowel sounds Musc Cervical Spine: normal cervical lordosis Skin General: no rashes or lesions noted Neuro General: patient alert Extrem General: no calf tenderness Psych Appearance: grossly normal Assessment and Plan Assessment and Plan (1) Cholelithiasis with chronic cholecystitis: Status: Chronic Qualifiers: Biliary obstruction: without biliary obstruction Cholelithiasis location: gallbladder Qualified Code(s): K80.10 - Calculus of gallbladder with chronic cholecystitis without obstruction (2) Biliary colic: Status: Acute Plan - Dr. Romain Arboleda MD: I recommended the patient that we obtain the laboratory that she is already had done per primary care. Hopefully that will include liver function test. I recommend to the patient a laparoscopic cholecystectomy with selective cholangiography. I have described the technique, benefit, risk, alternatives. She has had an opportunity to ask and have questions answered. We will try to schedule and expedite her care. It is of note that she did have a C-reactive protein that was 4.31. The patient has been vaccinated against COVID-19. She does have an adult son who refuses. I have asked her to stay clear of unvaccinated persons until we can accomplish her surgery. Copy: Roxann Hicks PA-C and Dr. Irene Arboleda M.D., F.A.C.S. I have re-examined the patient. There are no clinical changes since date of exam. Romain Arboleda M.D., F.A.C.S.
--- NOTE | 2021-08-16 11:12 | EX.PCM.DISCH ---
Discharge Instructions Procedure General Surgery Diet Discharge Diet: Light diet - advance as tolerated (if you have questions about your diet instructions, please talk to you doctor.) Activity Discharge Activity: May Not Drive (for 3-5 days or while taking narcotic pain medicine.) May shower in (days): 1 Lifting Restrictions: 10 pounds Dressing / Incision Call your doctor if your incision/area has: Continuous Slow Oozing, Sudden Increased Bleeding, Increased Pain/ Swelling, Increased Redness and Foul Smelling Discharge Call your doctor if you observe: Fever of 101 or Higher Suture Line Care: Avoid Pulling/Pushing and Avoid Pinching/Bending Additional Dressing/Incision Instructions:: Change or remove dressing in 4 days. Leave steri-strips in place for 1 week. Follow Up Care Please Follow Up With: Romain Arboleda MD When: Call [phone] to make an appointment to be seen in about 10 days. Test Results: Test results from this visit will be discussed in further detail at your follow-up appointment, if applicable. Discharge Plan Admission Attending Provider: Romain Arboleda Primary Care Provider: Irene Rivas Discharge Orders/Prescriptions Prescriptions: No Action metoprolol succinate 50 mg tablet extended release 24 hr 50 mg PO DAILY RF: 0 losartan 50 mg tablet 50 mg PO BID RF: 0 cholecalciferol (vitamin D3) 25 mcg (1,000 unit) capsule 25 mcg PO DAILY RF: 0 levothyroxine 25 mcg capsule 25 mcg PO DAILY RF: 0 mercaptopurine 50 mg tablet 50 mg PO DAILY RF: 0 omeprazole 20 mg capsule,delayed release(DR/EC) 20 mg PO DAILY RF: 0
--- NOTE | 2021-08-16 12:35 | RAD_ITS ---
STUDY: INTRAOPERATIVE CHOLANGIOGRAM. REASON FOR EXAM: Female, 75 years old. Laparoscopic cholecystectomy. FLUOROSCOPY TIME (if supplied): ( 19.6 seconds. ) minutes/seconds. A cine loop of 122 images were submitted. TECHNIQUE: An intraoperative cholangiogram was performed by the surgeon. Imaging was submitted. COMPARISON: None. FINDINGS: The common bile duct is not dilated. No intraluminal filling defect is seen. There is free flow of contrast into the duodenum. RAD/Cholangiogram/ O R,Initial IMPRESSION: Unremarkable intraoperative cholangiogram. Electronically Signed: Wenceslao Neil MD at 15:46 EST , Service support ,
[2021-08-16] MEDS: Bupivacaine Mpf 0.5% 30 ML VIAL (12:38)
--- NOTE | 2021-08-16 14:09 | PCM.OPRPT ---
Problems Associated Problem List Diagnoses (1) Cholelithiasis with chronic cholecystitis: Report of Operation Date of Procedure: 08/16/21 Pre-Operative Diagnosis: Chronic cholecystitis cholelithiasis Post-Operative Diagnosis: Same Surgery/Procedure Performed:: Laparoscopic cholecystectomy with cholangiograms Description of Surgical Findings:: Timeout informed consent was obtained. The patient was taken to the operating place upon the table underwent general endotracheal intubation anesthesia. Clindamycin 900 g given intravenously. The abdomen sterilely prepped and draped. 0.5% Marcaine was used as local anesthetic skin sites were preanesthetized. The procedure total 30 cc was used. A vertical supraumbilical incision was created sharp dissection carried down to the fascia the fascia was opened the peritoneum was opened and immediately became apparent there were dense adhesions of omentum to the anterior abdominal wall. Bluntly I dissected free. Inserted on the side catheter inserted scope and was able to just get the scope into the right upper quadrant using 5 mm trochars were placed one in the epigastrium mid epigastric area and right upper right lateral upper quadrant then changed to a 530 scope look back at the umbilical area there were further adhesions of omentum that was known to disrupt our surgery so I transected those of the anterior abdominal wall using electrified scissors. I dissected free just enough to get visualization. There were still extensive adhesions of omentum to the infraumbilical and periumbilical abdominal wall. There is no evidence of any bowel encountered during this procedure. There were copious adhesions of omentum to the gallbladder these had to be sharply bluntly dissected free electrocautery was used as needed for hemostasis as were hemoclips. Tedious blunt dissection was instituted at the infundibulum until clearly the cystic duct and cystic artery were identified. The cystic duct appeared to be enlarged. Hem-o-josue clip was placed and incision was made in the cystic duct and through a 14-gauge Angiocath cholangiogram catheter was inserted. Fluoroscopically controlled cholangiograms were obtained this demonstrated normal ductal anatomy and free flow into the small bowel. The cholangiogram catheter was removed and 210 mm Hem-o-josue clips were placed on the cystic duct stump prior to transecting it. 2 hemoclips lock clips were placed proximally one distally on the cystic artery prior to transecting it. The gallbladder was dissected free from the liver bed. There was no spillage. Electrocautery was used for hemostasis and a piece of fibrillar was placed as well. The right upper quadrant had been irrigated and aspirated free of excess fluid. The gallbladder was placed in a retrieval bag. The right upper quadrant was noted to be nicely hemostatic the abdomen was allowed to deflate of the CO2 through an antiviral valve. The Jerry was removed and the gallbladder was removed at the umbilicus. The fascia at the umbilicus approximated with a running 0 Vicryl. Skin edges approximated interrupted 4 Monocryl subdermal stitches. Steri-Strips Telfa OpSite dressings applied. Sponge and instrument and needle counts were reported to the surgeon to be correct. Specimen gallbladder. Drains none. Blood loss minimal. The patient was taken to the recovery area in satisfactory condition without apparent complication Romain Arboleda M.D., F.A.C.S. Surgeon: Romain Arboleda Type of Anesthesia: General and Local Anesthesiologist: Maddie Cee
== END 2021-08-16 18:23 | disposition home or self-care (01) ==
LOC: SDC 10:48 → AC 10:48
PROVIDERS: Anesthesiology; PCP Internal Medicine; Referring Provider Surgery; Visit Provider Surgery
PROC: (CPT 47610; principal; 2021-08-16 12:15)
DX: K80.10 Calculus of gallbladder with chronic cholecystitis without obstruction (principal); K82.8 Other specified diseases of gallbladder; K21.9 Gastro-esophageal reflux disease without esophagitis; I10 Essential (primary) hypertension; E78.5 Hyperlipidemia, unspecified; E03.9 Hypothyroidism, unspecified; M19.90 Unspecified osteoarthritis, unspecified site; Z90.710 Acquired absence of both cervix and uterus; Z79.899 Other long term (current) drug therapy
CPT/HCPCS: 00790; 47563; 36415; 74300; 76000; 80053; 83690; 84443; 85025; 88304; J7120; J2405

== ENCOUNTER 2021-11-16 07:19 | Outpatient (CLI) | payer MEDICARE, OTHER, SELFPAY ==
--- NOTE | 2021-11-16 07:35 | BI_ITS ---
MAMMOGRAPHY - BILATERAL SCREENING 3-D TOMOSYNTHESIS REASON FOR EXAM: Female, 76 years old. SCREENING PERTINENT HISTORY: No significant family history. TECHNIQUE: 2-D mammograms and 3-D Tomosynthesis of the breast (s) were performed. CAD was performed. COMPARISON: 08/30/2020 FINDINGS: The breast composition is heterogeneously dense that can obscure small breast masses. Scattered benign calcifications are seen. No dense spiculated masses or suspicious microcalcifications are identified. No architectural distortion is identified. There is no skin thickening or retraction. There has been no significant change since the prior study. BI/SCRN MAMM (CAD)W/OLIMPIA BILAT IMPRESSION: No mammographic signs of malignancy. Routine yearly mammograms recommended. ASSESSMENT CATEGORY: BIRADS Category 1: Negative. A letter regarding these results will be sent to the patient by the facility within 30 days. FOLLOW UP RECOMMENDATION: Yearly follow up mammogram recommended. (A) Approximately 10% of breast cancers are not detected by mammography. A normal mammogram should not delay biopsy of a clinically suspicious abnormality. Electronically Signed: Benjamin Castillo MD at 9:08 EDT ,
== END 2021-11-16 23:59 | disposition home or self-care (01) ==
PROVIDERS: PCP Internal Medicine; Referring Provider Nurse Practitioner; Visit Provider Nurse Practitioner
DX: Z12.31 Encounter for screening mammogram for malignant neoplasm of breast (principal)
CPT/HCPCS: 77063; 77067

== ENCOUNTER 2021-11-26 08:52 | Outpatient (CLI) | payer MEDICARE, OTHER, SELFPAY ==
[2021-11-26 08:57] LABS: Bacteria 0 SEEN /hpf (None Seen); Mucous, Urine 0 SEEN /hpf (<or=2+); White Blood Cells 0 SEEN /hpf (0-5)
[2021-11-26 09:54] LABS: Color, Urine Yellow (Yellow); Glucose, Dipstick Normal (Normal); Ketone-Dipstick Negative (Negative); Leukocyte Esterase-Dipstick Negative /ul (Negative); Nitrite-Dipstick Negative (Negative); Occult Blood-Urine 10 /ul (Negative); Protein-Dipstick 15 mg/dl (Negative); Urine Bilirubin Dipstick Negative (Negative); Urine Clarity Clear (Clear); Urine Urobilinogen Normal (Normal)
[2021-11-26 09:58] LABS: Absolute Neutrophil Count 3.6 X10^3/uL (2.0-7.7); Basophil# 0.03 X10^3/uL; Basophil% 0.5 % (0-1); Eosinophil# 0.17 X10^3/uL; Hematocrit 41.6 % (37-47); Hemoglobin 14.7 g/dL (12.0-15.0); Lymphocyte % 26.1 % (19-41); Mean Corp Hgb Conc 35.3 g/dL (32-36); Mean Corpuscular Hgb 33.4 pg (27.0-32.0); Mean Corpuscular Volume 94.5 fL (81-99); Monocyte# 0.44 X10^3/uL; Monocyte% 7.7 % (0-10); NRBC Flagged by Analyzer 0 % (0-5); Neutrophil # 3.58 X10^3/uL (2.7-7.7); Neutrophil % 62.4 % (47-70); Platelet Count 264 K/mm3 (150-450); RBC Distribution Width CV 12.9 % (11.6-14.6); RBC Distribution Width SD 42.8 fl (35.1-43.9); White Blood Count 5.7 K/mm3 (4.4-11.0)
[2021-11-26 10:09] LABS: Red Blood Cells-Urine 0-5 SEEN /hpf (0-5); Squamous Epithelial Cells - UA 0-5 SEEN /hpf (5-10)
[2021-11-26 10:24] LABS: Microalbumin,Random Urine 5.7 mg/L (NO RANGE EST.); Microalbumin:Creatinine Ratio 6.9 mg/g CRE (<30 mg/g CRE)
[2021-11-26 10:37] LABS: Vitamin D,25 Hydroxy 65.6 ng/mL
[2021-11-26 11:33] LABS: ALB/GLOB Ratio 0.9 RATIO (0.9-2.4); AST(SGOT) 14 U/L (15-37); Alanine Aminotransfer ALT/SGPT 27 U/L (13-56); Albumin, Serum 3.6 g/dL (3.2-5.0); Alkaline Phosphatase 71 U/L (45-117); Anion Gap 7 (5-15); BUN 20 mg/dL (7-18); Calcium,Total 9.3 mg/dL (8.5-10.1); Chloride 104 mmol/L (98-107); Creatinine, Serum 0.83 mg/dL (0.55-1.02); EST Glomerular Filtration Rate 71 mL/min (>60); Est Glom Filt Rate - Afr Amer 86 mL/min (>60); Globulin 3.8 g/dL (2.2-4.2); Glucose 102 mg/dL (74-106); Potassium 3.8 mmol/L (3.5-5.1); Protein, Total 7.4 g/dL (6.4-8.2); Sodium Level 139 mmol/L (136-145); Thyroid Stim Hormone (TSH) 1.29 uIU/mL (0.358-3.74)
== END 2021-11-26 23:59 | disposition home or self-care (01) ==
LOC: LAB 08:54
PROVIDERS: PCP Internal Medicine; Referring Provider Internal Medicine; Visit Provider Internal Medicine
DX: I10 Essential (primary) hypertension (principal); E55.9 Vitamin D deficiency, unspecified; E03.9 Hypothyroidism, unspecified
CPT/HCPCS: 36415; 80053; 81001; 82043; 82306; 82570; 84443; 85025

== ENCOUNTER → 2022-05-27 | Outpatient (CLI) | payer MEDICARE, OTHER, SELFPAY | END | disposition home or self-care (01) | PROVIDERS: PCP Internal Medicine; Referring Provider Ophthalmology; Visit Provider Ophthalmology | DX: H53.2 Diplopia (principal) | CPT/HCPCS: 36415 ==

== ENCOUNTER → 2022-11-27 | Outpatient (CLI) | payer MEDICARE, OTHER, SELFPAY ==
--- NOTE | 2022-11-27 10:19 | BI_ITS ---
MAMMOGRAPHY - BILATERAL SCREENING REASON FOR EXAM: Female, 77 years old. Routine annual screening examination. PERTINENT HISTORY: Grandmother with breast cancer. Remote left excisional breast biopsies. TECHNIQUE: Digital bilateral breast olimpia (3D mammographic acquisition) in the CC and MLO projections. 2-D mediolateral oblique (MLO) and craniocaudad (CC) views of both breasts were obtained. CAD: Full Field Digital Mammography with Computer Added Detection was performed. COMPARISON: Comparison is made with prior study of November 16, 2021 and August 30, 2020. FINDINGS: Breast Composition: The breasts are heterogeneously dense, which may obscure small masses. There are no dominant masses or suspicious calcifications. Stable small benign-appearing bilateral axillary lymph nodes. No other significant abnormalities are identified. There has been no significant change since the prior study. BI/SCRN MAMM (CAD)W/OLIMPIA BILAT IMPRESSION: Stable bilateral screening mammogram. Yearly follow-up mammogram recommended. (A) ASSESSMENT CATEGORY: BIRADS Category 2: Benign. A letter regarding these results will be sent to the patient by the facility within 30 days. Approximately 10% of breast cancers are not detected by mammography. A normal mammogram should not delay biopsy of a clinically suspicious abnormality. [id number] Electronically Signed: Wenceslao Neil MD at 12:08 EDT ,
--- NOTE | 2022-11-27 10:24 | BD_ITS ---
STUDY: DUAL ENERGY X-RAY ABSORPTIOMETRY / DXA REASON FOR EXAM: Female, 77 years old. [id number] TECHNIQUE: Bone Mineral Density (BMD) measurements of lumbar spine and bilateral hips were obtained. COMPARISON: Comparison is made with prior study dated August 30, 2020. FINDINGS: Lumbar Spine (L1-L4): g/cm2 (0.828) / T-score (-2.0) / Z-score (0.4) Findings are suggestive of osteopenia with a moderate fracture risk. Left Femur Total: g/cm2 (0.838) / T-score (-0.9) / Z-score (0.9) Left Femoral Neck: g/cm2 (0.737) / T-score (-1.0) / Z-score (1.1) Right Femur Total: g/cm2 (0.797) / T-score (-1.2) / Z-score (0.6) Right Femoral Neck: g/cm2 (0.672) / T-score (-1.6) / Z-score (0.5) The T-Scores on the most recent prior examination were: Lumbar Spine (L1-L4): There has been worsening of bone density since the previous examination. Left Femur Total: which represents a worsening of 0.6%. Right Femur Total: which represents a worsening of 1.3%. BD/Dexa Bone Density Study IMPRESSION: The patient is considered osteopenic as outlined below according to World Prakash Organization (WHO) criteria with a moderate fracture risk. There has been worsening of bone density since the previous examination. Reference Information: The T-score is the number of standard deviations above or below the standard which is normal for young adults at their peak bone mineral density. The World Health Organization (WHO) interprets the T-scores as follows: Above -1 Normal bone density Between -1 and -2.5 Osteopenia Equal to / or below -2.5 Osteoporosis As a practical clinical guideline, osteopenia may be graded as follows: Mild -1 through -1.5 Moderate -1.6 through -2.0 Severe -2.1 through -2.4 The Z-score is the number of standard deviations above or below age-matched controls. A Z-score of less than -1.5 would be considered abnormal. References: 1. NIH Osteoporosis and Related Bone Diseases www osteo.org 2. International Society for Clinical Densitometry www iscd.org 3. National Osteoporosis Foundation www nof.org Electronically Signed: Wenceslao Neil MD at 11:13 EDT ,
== END | disposition home or self-care (01) ==
LOC: OPBD 10:15
PROVIDERS: PCP Internal Medicine; Visit Provider Internal Medicine
DX: Z78.0 Asymptomatic menopausal state (principal); Z12.31 Encounter for screening mammogram for malignant neoplasm of breast
CPT/HCPCS: 77063; 77067; 77080

== ENCOUNTER 2023-01-10 12:00 | Outpatient (RCR) | payer MEDICARE, OTHER, SELFPAY ==
--- NOTE | 2022-12-24 12:48 | HP.PTEVAL_ITS ---
Patient's Visit Information EFREN WHIPPLE is a 77 year old F referred to Physical Therapy by Dr. Irene Rivas DO with a diagnosis of L hip pain, IT band syndrome. Date of Evaluation: 12/24/22 Physical Therapist: Omkar Lerner, NONAT, OCS, CSCS - Visit Plan Frequency: 2x /Week Duration: 4-6 Weeks Plan: 2x/week for 2-6 weeks... Pt to stretch piriformis and ITB at home and prone hip ext and bridge 2x/day and avoid aggravating activities. Treate with STM/DTR to piriformis and rollout to ITB on L, stretch same, progressive hip strength to HEP. may use US thermal to L glut if not much better next session/MH - Subjective Turned R ankle 2 months ago and caught self with left leg, had hip pain around that time. Intermittent pain since. Comfortable at rest, hard to get up and start walking . Pain is lateral L hip down to L knee. Not tender to poke. Wakes up at night if rolls on left side and wakes up nightly. Activities not effected just painful. Walks with neighbor daily, not worse. Walks 2-4 miles per day. Worse pain is in evening. Hobbies: lori, knit, read. Retired. Lives in [place] and stairs hurt , worse in am if she uses L. feels like rock in L glut when sitting on hard chair particularly after running. - Pain L hip pain Pain Intensity (Out of 10): 0 Pain Intensity Range: 0, 7 Comment: worse at night on L side - Objective Walks I with slight lack of L hip extension but hard to notice. Trasnfers I bed and chair. Steps I reciprocal with one rail, minor pain up with L in posterior hip. tender to palpation in L gluts med adn min and piriformis as well as down ITB band minimally, not overly tender at GT. R side not tender. AROM LB WFL and symmetrical. AROM L hip extension mildly limited Aand PROM to 5 degrees vs 8 on R. knee and ankle AROM WFL, hip flexion and rotations are symmetrical and without pain except slight tenderness with er L at end range. - FRANCES, - FADDIR, - Scour. reflexes 2/3 patella and achilles B. sensation LE WNL to gross light touch LE. Strength hip extension L 3+ and R 4-, others 4- in hips, 4 in knees and 4+ ankles without pain. - Balance/Special Test Scores Lower Extremity Functional Score: 57 - Goals Goal 1:: Pateint get up from sitting without having to hobble Goal Time Frame: 2-4 Weeks Goal 2:: Patient feel 90% better in overall hip pain to 1/10 at worst Goal Time Frame: 4-6 Weeks Goal 3:: LEFS score65 Goal Time Frame: 4-6 Weeks Goal 4:: pt I in management of condition for helaing Goal Time Frame: 4-6 Weeks Goal 5:: Sit on firm chair without rock feeling in L glut. Goal Time Frame: 2-4 Weeks - Rehabilitation Potential Physical Therapy Diagnosis: l hip pain likely glut strain in nature and appropriate for PT to get back to prior level of function Rehabilitation Potential: Fair - Anticipated Interventions Patient/Client Instruction: Educate patient on: Condition, Plan of Care For the Purpose of:: To decrease pain, To decrease swelling/inflammation, To increase ROM, To improve nutrient delivery to tissue, To improve muscle performance and motor function, To increase tolerance to activity/condition/position Therapeutic Exercise to Include: Strength training, Flexibilty training, Passive ROM, Active ROM For the Purpose of:: To decrease pain, To decrease swelling/inflammation, To increase ROM Manual Therapy Techniques to Include: Trigger point massage, Soft tissue mobilization For the Purpose of:: To decrease pain, To increase ROM, To improve nutrient delivery to tissue Thermo therapy (hot pack): Yes Ultrasound (thermal/non thermal): Yes For the Purpose of:: To decrease pain, To decrease swelling/inflammation, To increase ROM Thank you for the opportunity to evaluate your patient. For Medicare and Medicare HMO plans, please review the plan of care and approve it. It will need to be FAXED BACK to us at [phone] for Medicare purposes. For Medicare only, by signing this I certify the plan of care. Please let me know if there are questions or concerns regarding this plan of care. Physician Signature: _Date:
--- NOTE | 2023-03-10 14:23 | HP.PTDCNRP_ITS ---
Patient Information Patient Information: EFREN WHIPPLE was seen in my office for initial evaluation on 12/24/22. The following Plan of Care was established for this patient: POC Established Initial Frequency: 2x /Week Initial Duration: 4-6 Weeks Anticipated Interventions Patient/Client Instruction: Educate patient on: Condition and Plan of Care For the Purpose of:: To decrease pain, To decrease swelling/inflammation, To increase ROM, To improve nutrient delivery to tissue, To improve muscle performance and motor function and To increase tolerance to activity/c ondition/position Therapeutic Exercise to Include: Strength training, Flexibilty training, Passive ROM and Active ROM For the Purpose of:: To decrease pain, To decrease swelling/inflammation and To increase ROM Manual Therapy Techniques to Include: Trigger point massage and Soft tissue mobilization For the Purpose of:: To decrease pain, To increase ROM and To improve nutrient delivery to tissue Thermo therapy (hot pack): Yes Ultrasound (thermal/non thermal): Yes For the Purpose of:: To decrease pain, To decrease swelling/inflammation and To increase ROM Last Seen Last Seen: This patient was last seen in our office 01/10/23. Pertinent comments regarding their Physical therapy will appear below: Pt seen 5 visits of POC and was 75% improved. she was to f/u 2 weeks after last session to ensure continued improvement but did not schedule or attend that visit. at this point, it has been almost two months and I will discontinue due to nonattendance. At this point I will be discontinuing this patient from physical therapy. I would be happy to see this patient again in the future if found appropriate by the physician. Thank you! Omkar Lerner, DPT, OCS, CSCS Balance/Gait/Functional tests Balance/Special Test Scores Lower Extremity Functional Score: 60
== END 2023-01-10 19:00 | disposition home or self-care (01) ==
LOC: PT 12:00
PROVIDERS: PCP Internal Medicine; Referring Provider Internal Medicine; Visit Provider Internal Medicine
DX: M25.552 Pain in left hip (principal)
CPT/HCPCS: 97035; 97110; 97140; 97161

== ENCOUNTER → 2023-01-22 | Outpatient (CLI) | payer MEDICARE, OTHER, SELFPAY ==
[2023-01-22 13:04] LABS: Absolute Lymphocyte Count 1.28 X10^3/uL (0.83-4.51); Absolute Neutrophil Count 3.8 X10^3/uL (2.0-7.7); Basophil# 0.04 X10^3/uL; Basophil% 0.7 % (0-1); Eosinophil# 0.17 X10^3/uL; Eosinophils% 2.9 % (0-5); Hematocrit 45.7 % (37-47); Hemoglobin 14.6 g/dL (12.0-15.0); Lymphocyte # 1.28 X10^3/ul (0.83-4.51); Lymphocyte % 21.5 % (19-41); Mean Corp Hgb Conc 31.9 g/dL (32-36); Mean Corpuscular Hgb 30.9 pg (27.0-32.0); Mean Corpuscular Volume 96.8 fL (81-99); Mean Platelet Vol. 10.4 fl (6.2-12.0); Monocyte# 0.66 X10^3/uL; Monocyte% 11.1 % (0-10); NRBC Flagged by Analyzer 0 % (0-5); Neutrophil # 3.77 X10^3/uL (2.7-7.7); Neutrophil % 63.5 % (47-70); Platelet Count 294 K/mm3 (150-450); RBC Distribution Width CV 12.8 % (11.6-14.6); RBC Distribution Width SD 45.7 fl (35.1-43.9); Red Blood Count 4.72 M/mm3 (4.2-5.4); White Blood Count 5.9 K/mm3 (4.4-11.0)
== END | disposition home or self-care (01) ==
LOC: MTLAB 10:49
PROVIDERS: PCP Internal Medicine; Referring Provider Internal Medicine Gastroenterology; Visit Provider Internal Medicine Gastroenterology
DX: K51.90 Ulcerative colitis, unspecified, without complications (principal)
CPT/HCPCS: 36415; 85025

== ENCOUNTER → 2023-05-21 | Outpatient (CLI) | payer MEDICARE, OTHER, SELFPAY ==
[2023-05-21 10:36] LABS: Absolute Lymphocyte Count 1.16 X10^3/uL (0.83-4.51); Absolute Neutrophil Count 2.8 X10^3/uL (2.0-7.7); Basophil# 0.03 X10^3/uL; Basophil% 0.6 % (0-1); Eosinophil# 0.28 X10^3/uL; Hematocrit 37.9 % (37-47); Hemoglobin 13.7 g/dL (12.0-15.0); Lymphocyte # 1.16 X10^3/ul (0.83-4.51); Lymphocyte % 24.7 % (19-41); Mean Corp Hgb Conc 36.1 g/dL (32-36); Mean Corpuscular Hgb 36.2 pg (27.0-32.0); Mean Corpuscular Volume 100.3 fL (81-99); Mean Platelet Vol. 9.7 fl (6.2-12.0); Monocyte# 0.44 X10^3/uL; Monocyte% 9.4 % (0-10); NRBC Flagged by Analyzer 0 % (0-5); Neutrophil # 2.77 X10^3/uL (2.7-7.7); Neutrophil % 58.9 % (47-70); Platelet Count 238 K/mm3 (150-450); RBC Distribution Width CV 13.9 % (11.6-14.6); RBC Distribution Width SD 48.2 fl (35.1-43.9); Red Blood Count 3.78 M/mm3 (4.2-5.4); White Blood Count 4.7 K/mm3 (4.4-11.0)
== END | disposition home or self-care (01) ==
PROVIDERS: PCP Internal Medicine; Referring Provider Internal Medicine Gastroenterology; Visit Provider Internal Medicine Gastroenterology
DX: K51.90 Ulcerative colitis, unspecified, without complications (principal)
CPT/HCPCS: 36415; 85025

== ENCOUNTER → 2023-09-22 | Outpatient (CLI) | payer MEDICARE, OTHER, SELFPAY ==
[2023-09-22 10:18] LABS: Absolute Lymphocyte Count 1.37 X10^3/uL (0.83-4.51); Absolute Neutrophil Count 3.7 X10^3/uL (2.0-7.7); Basophil# 0.03 X10^3/uL; Basophil% 0.5 % (0-1); Eosinophil# 0.25 X10^3/uL; Eosinophils% 4.3 % (0-5); Hematocrit 41.6 % (37-47); Hemoglobin 13.8 g/dL (12.0-15.0); Lymphocyte # 1.37 X10^3/ul (0.83-4.51); Lymphocyte % 23.6 % (19-41); Mean Corp Hgb Conc 33.2 g/dL (32-36); Mean Corpuscular Hgb 32.3 pg (27.0-32.0); Mean Corpuscular Volume 97.4 fL (81-99); Mean Platelet Vol. 9.7 fl (6.2-12.0); Monocyte# 0.48 X10^3/uL; Monocyte% 8.3 % (0-10); NRBC Flagged by Analyzer 0 % (0-5); Neutrophil # 3.65 X10^3/uL (2.7-7.7); Platelet Count 272 K/mm3 (150-450); RBC Distribution Width CV 12.4 % (11.6-14.6); RBC Distribution Width SD 43.1 fl (35.1-43.9); Red Blood Count 4.27 M/mm3 (4.2-5.4); White Blood Count 5.8 K/mm3 (4.4-11.0)
== END | disposition home or self-care (01) ==
PROVIDERS: PCP Internal Medicine; Referring Provider Internal Medicine Gastroenterology; Visit Provider Internal Medicine Gastroenterology
DX: K51.90 Ulcerative colitis, unspecified, without complications (principal)
CPT/HCPCS: 36415; 85025

== ENCOUNTER → 2024-03-31 | Outpatient (CLI) | payer MEDICARE, OTHER, SELFPAY ==
--- NOTE | 2024-03-31 08:49 | ECHOD_ITS ---
Reason For Study: CHEST PAIN Procedure This was a 2D Doppler, Color Flow transthoracic echocardiogram. Exam performed in department. Left Ventricle Normal LV size. Left ventricular systolic function is normal. The left ventricular ejection fraction is 65 %. Stage 1 diastolic dysfunction. No regional wall motion abnormalities noted. Right Ventricle Normal RV size. Normal systolic function. Atria Normal left atrium. Normal right atrium. Mitral Valve Normal mitral valve. Tricuspid Valve Normal tricuspid valve. Aortic Valve Normal aortic valve. Pulmonic Valve Normal pulmonic valve. Great Vessels Normal aortic root. The pulmonary artery is normal size. Normal inferior vena cava. Pericardium/Pleural No pericardial effusion. MMode/2D Measurements & Calculations LVIDd: 4.4 cm IVSd: 0.86 cm Ao root diam: 2.8 cm LVIDs: 2.8 cm LVPWd: 0.82 cm RVDd: 3.2 cm FS: 35.5 % LAV(MOD-bp): 30.2 ml LVAd ap4: 28.3 cm2 SV(MOD-sp4): 59.0 ml LAV(MOD-bp) Indexed: 17.1 ml/m2 LVLd ap4: 7.6 cm LAV(MOD-sp2): 27.8 ml EDV(MOD-sp4): 86.4 ml LAV(MOD-sp4): 30.3 ml EDV(sp4-el): 89.4 ml LVAs ap4: 14.5 cm2 LVLs ap4: 6.3 cm ESV(MOD-sp4): 27.4 ml ESV(sp4-el): 28.4 ml EF(MOD-sp4): 68.2 % EF(sp4-el): 68.2 % SV(sp4-el): 61.0 ml LA A4 area: 13.8 cm2 LA dimension(2D): 3.1 cm RA A4 area: 11.8 cm2 TAPSE: 2.4 cm Time Measurements MV dec time: 0.22 sec Doppler Measurements & Calculations MV E max vincent: 98.0 cm/sec Lat Peak E' Vincent: 10.1 cm/sec Med Peak E' Vincent: 9.8 cm/sec MV A max vincent: 101.4 cm/sec E/E' lat: 9.7 E/E' med: 10.0 MV E/A: 0.97 Ao V2 max: 140.6 cm/sec LV V1 max: 109.1 cm/sec PA V2 max: 85.0 cm/sec Ao max P.9 mmHg LV V1 max P.8 mmHg ECHO/Echo Complete Interpretation Summary Normal LV size. Left ventricular systolic function is normal. The left ventricular ejection fraction is 65 %. Stage 1 diastolic dysfunction. Structurally normal valves. Ordering Physician: Roxann Hicks Referring Physician: YUVAL ROXY Performed By: Brenda Monaco RDCS
== END | disposition home or self-care (01) ==
LOC: CVS 08:45
PROVIDERS: PCP Internal Medicine; Referring Provider Physician Assistant Medical; Visit Provider Physician Assistant Medical
DX: R07.9 Chest pain, unspecified (principal)
CPT/HCPCS: 93306

== ENCOUNTER → 2024-05-18 | Outpatient (CLI) | payer MEDICARE, OTHER, SELFPAY ==
--- NOTE | 2024-05-18 12:46 | BI_ITS ---
MAMMOGRAPHY - BILATERAL SCREENING REASON FOR EXAM: Female, 78 years old. Routine annual screening examination. PERTINENT HISTORY: Grandmother with breast cancer. Remote left excisional breast biopsy. TECHNIQUE: Digital bilateral breast olimpia (3D mammographic acquisition) in the CC and MLO projections. 2-D mediolateral oblique (MLO) and craniocaudad (CC) views of both breasts were obtained. CAD: Full Field Digital Mammography with Computer Added Detection was performed. COMPARISON: Comparison is made with prior study dated November 27, 2022 and November 16, 2021. FINDINGS: Breast Composition: The breasts are heterogeneously dense, which may obscure small masses. There are no dominant masses or suspicious calcifications. No other significant abnormalities are identified. There has been no significant change since the prior study. BI/SCRN MAMM (CAD)W/OLIMPIA BILAT IMPRESSION: Stable bilateral screening mammogram. Yearly follow-up mammogram recommended. (A) ASSESSMENT CATEGORY: BIRADS Category 1: Negative. A letter regarding these results will be sent to the patient by the facility within 30 days. Approximately 10% of breast cancers are not detected by mammography. A normal mammogram should not delay biopsy of a clinically suspicious abnormality. [id number] Electronically Signed: Wenceslao Neil MD at 14:16 EDT ,
== END | disposition home or self-care (01) ==
LOC: OPBI 12:46
PROVIDERS: PCP Internal Medicine; Referring Provider Internal Medicine; Visit Provider Internal Medicine
DX: Z12.31 Encounter for screening mammogram for malignant neoplasm of breast (principal)
CPT/HCPCS: 77063; 77067

== ENCOUNTER 2024-06-09 11:00 | Outpatient (RCR) | payer MEDICARE, OTHER, SELFPAY ==
--- NOTE | 2024-05-25 11:26 | HP.PTEVAL_ITS ---
Patient's Visit Information Visit Information Visit Information: EFREN WHIPPLE is a 78 year old F referred to Physical Therapy by Dr. Irene Rivas DO with a diagnosis of URINARY INCONTINENCE. Date of Evaluation: 05/25/24 Physical Therapist: Bisi Ramos PT, Cert MDT Visit Plan Frequency: 1x/Week Duration: 2-4 Months Plan: PF THERAPY FOR STRENGTHENING, LENGTHENING/RELAXATION AND ENDURANCE TRAINING. URINARY URGE AND FREQUENCY EDUCATION. HEALTHY BLADDER HABIT EDUCATION. TRAINING IN COORDINATION OF PELVIC FLOOR MUSCULATURE WITH HIP AND CORE (TRANSVERSE ABDOMINUS) MUSCULATURE. CORE STRENGTHENING. POSTURE TRAINING. LORENA LE ROM, STRETCHING AND STRENGTHENING. TRAINING IN ABDOMINAL CAVITY PRESSURE MGMT WITH ADL'S. Subjective Subjective: Work/Leisure: RETIRED. HOBBIES: WALKING, PUZZLES, READING, KNITTING. Present symptoms: BLADDER LEAKAGE ALMOST EVERYDAY. WEARING BLADDER CONTROL PAD TYPE #2. USUALLY A FEW DROPS AT A TIME AND USUALLY OCCURS IN STANDING AND WITH WALKING. NOT HAVING ANY LEAKING AT NIGHT AND NOT WEARING PROTECTION AT NIGHT. Present since: 6 MO Pain Scale: N/A Is it getting better, worse or staying the same: STAYING THE SAME Commenced as a result of: NO APPARENT REASON. Worse: STANDING, WALKING Better: NOTHING Disturbed sleep: NO. GETTING UP ZERO TIMES AT NIGHT TO URINATE. Previous history/Previous treatment: HYSTERECTOMY. 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 Treatment this episode: NONE Coughing/sneezing/straining: POSITIVE FOR URINARY LEAKING Gait: INDEP/NORMAL How long can you delay the need to urinate: JUST A FEW MINUTES - NEED TO HEAD RIGHT TO THE BATHROOM WHEN URGE HITS. Prolapse (Falling out feeling): NO Frequency of Urination: EVERY 2-4 HOURS Ability to stop urine flow: UNABLE TO DEFLECT THE URINE STREAM AT FIRST BUT WHEN PARTIALLY EMPTY CAN STOP THE STREAM. Ability to initiate urine stream: YES. NEVER HAS DIFFICULTY. Dyspareunia: N/A Gait: INDEP. Bowel Incontinence: NO Unexplained weight loss: NO Imaging: NO PMH/Recent major surgery: Polycystic kidney's. Thyroid disease Arthritis Ulcerative colitis Non-smoker Biliary colic Cholelithiasis with chronic cholecystitis Multiple premature ventricular complexes Hypothyroidism Hyperlipidemia Essential (primary) hypertension Intraductal papilloma of left breast GERD (gastroesophageal reflux disease) Osteoarthritis Back pain History of cholecystectomy 08/2021 History of hysterectomy History of left heart catheterization 10/08/02 History of colonoscopy History of partial thyroidectomy History of lumpectomy H/O laminectomy Objective Objective: Sitting/Standing Posture: ANTERIOR PELVIC TILT. NO RELVANT LATERAL SHIFT. Other Observations: INDEP GAIT AND TRANSFERS Sensory deficit: LORENA LE LIGHT TOUCH SENSATION GROSSLY INTACT AND SYMMETRICAL ROM deficit: LORENA HS, HIP ROTATOR AND HIP ADDUCTOR TIGHTNESS Motor deficit: LORENA LE'S GROSSLY 5/5 EXCEPT HIPS 4/5. PELVIC FLOOR STRENGTH 3/5 X 5 SEC X 5 REPS WITH INTERNAL VAGINAL MANUAL TESTING. Reflexes: 2+ LORENA LE'S Dural Signs: NEGATIVE LORENA LE'S. Lumbar mvmt loss: flex - NIL ext - MOD TO LUDMILA R SG - MOD L SG - MOD Core strength: POOR Palpation: NO PELVIC FLOOR TENDERNESS, TRIGGER POINTS OR HIGH TONE WITH INTERNAL VAGINAL MANUAL PELVIC FLOOR PALPATION AND STRENGTH TESTING. ALSO NOT TENDER WITH EXTERNAL PALPATION OF PELVIC REGION. FUNCTIONAL SCREEN: Incontinence Impact Questionnaire Score: 1 Urogenital Distress Inventory Score: 7 TREATMENT: EDUCATION IN URGE AND STRESS INCONTINENCE. HEP INSTRUCTION IN DIAPHRAGMATIC BREATHING X AT LEAST 5 MIN A DAY AND QUICK FLICK KEGELS IN LYING X 8, 3 TIMES A DAY. INTRODUCTION TO STRATEGIES FOR BLADDER RETRAINING FOR URGE INCONTINENCE. INTRODUCTION TO ANATOMY AND PHYSIOLOGY OF PELVIC FLOOR IT RELATES TO THE BLADDER AND INCONTINENCE. PATIENT TOLERATED EXAM AND TREATMENT WELL AND DENIED PAIN THROUGHOUT. SHE IS PLEASANT AND COOPERATIVE TO WORK WITH. Goals Goal 1:: DECREASE URINARY LEAKAGE EPISODES TO ONE OR LESS PER DAY Goal 2:: PATIENT WILL SUCCESSFULLY DELAY VOIDING LONG NEEDED WHEN URGENCY OCCURS TO SUCCESSFULLY MAKE IT TO THE BATHROOM. Goal 3:: PATIENT WILL DEMONSTRATE/COMMUNICATE 10 CONSISTENT AND CONSECUTIVE 10 SECOND PELVIC FLOOR MUSCLE CONTRACTIONS TO DEMONSTRATE IMPROVED PELVIC FLOOR ENDURANCE. Goal 4:: DEVELOP HEALTHY FLUID INTAKE HABITS WITH FLUID INTAKE OF ? BODY WEIGHT IN OUNCES PER DAY AND 2/3 BEING WATER. Goal 5:: NORMALIZE VOIDING FREQUENCEY TO EVERY 3-4 HOURS. Goal 6:: PATIENT WILL BE INDEP WITH A HEP/HOME INSTRUCTIONS FOR CONTINUED IMPROVEMENT ONCE FORMAL PHYSICAL THERAPY CONCLUDES. Rehabilitation Potential Physical Therapy Diagnosis: PELVIC FLOOR WEAKNESS, CORE WEAKNESS AND LE TIGHTNESS WITH SYMPTOMS OF URGE INCONTINENCE AND STRESS INCONTINENCE. Rehabilitation Potential: Good Anticipated Interventions Patient/Client Instruction: Educate patient on: Condition, Plan of Care and Risk Factors For the Purpose of:: To improve self management Therapeutic Exercise to Include: Strength training, Endurance training, Postural training, Flexibilty training and Neuromotor development For the Purpose of:: To improve muscle performance and motor function, To increase tolerance to activity/condition/position, To improve ability of physical actions for home/community/work/leisure and To improve self management Text: Thank you for the opportunity to evaluate your patient. For Medicare and Medicare HMO plans, please review the plan of care and approve it. It will need to be FAXED BACK to us at [phone] for Medicare purposes. For Medicare only, by signing this I certify the plan of care. Please let me know if there are questions or concerns regarding this plan of care. Physician Signature: Date:
--- NOTE | 2024-06-15 15:39 | HP.PT.NRP ---
Patient Information Patient Information: EFREN WHIPPLE was seen in my office for initial evaluation on 05/25/24. The following Plan of Care was established for this patient: POC Established Initial Frequency: 1x/Week Initial Duration: 2-4 Months Anticipated Interventions Patient/Client Instruction: Educate patient on: Condition, Plan of Care and Risk Factors For the Purpose of:: To improve self management Therapeutic Exercise to Include: Strength training, Endurance training, Postural training, Flexibilty training and Neuromotor development For the Purpose of:: To improve muscle performance and motor function, To increase tolerance to activity/condition/position, To improve ability of physical actions for home/community/work/leisure and To improve self management Last Seen Last Seen: This patient was last seen in our office 06/09/24. Pertinent comments regarding their Physical therapy will appear below: It has been my pleasure to see this patient for a total of 3 visits. This PT received a note stating patient cancelled all remaining appointments because she is going to try to continue on her own at home. At her last visit she reported her symptoms were improving and there were days that she didn't have any urinary leaking at all. She is appropriate to return to MD for further follow-up as needed. At this point I will be discontinuing this patient from physical therapy. I would be happy to see this patient again in the future if found appropriate by the physician. Thank you! Bisi Ramos, PT, Cert MDT
== END 2024-06-09 19:00 | disposition home or self-care (01) ==
LOC: PT 11:00
PROVIDERS: PCP Internal Medicine; Referring Provider Internal Medicine; Visit Provider Internal Medicine
DX: R32 Unspecified urinary incontinence (principal)
CPT/HCPCS: 97162; 97530

== ENCOUNTER → 2024-09-27 | Outpatient (CLI) | payer MEDICARE, OTHER, SELFPAY ==
[2024-09-27 16:10] LABS: CRP < 2.90 mg/L (0.0-3.0)
[2024-09-27 16:19] LABS: Absolute Lymphocyte Count 2.06 X10^3/uL (0.83-4.51); Absolute Neutrophil Count 4.5 X10^3/uL (2.0-7.7); Basophil# 0.04 X10^3/uL; Basophil% 0.5 % (0-1); Eosinophil# 0.25 X10^3/uL; Eosinophils% 3.2 % (0-5); Hematocrit 42.5 % (37-47); Hemoglobin 13.8 g/dL (12.0-15.0); Lymphocyte # 2.06 X10^3/ul (0.83-4.51); Lymphocyte % 26.6 % (19-41); Mean Corp Hgb Conc 32.5 g/dL (32-36); Mean Corpuscular Hgb 30.3 pg (27.0-32.0); Mean Corpuscular Volume 93.4 fL (81-99); Monocyte% 11.6 % (0-10); NRBC Flagged by Analyzer 0 % (0-5); Neutrophil # 4.48 X10^3/uL (2.7-7.7); Neutrophil % 57.8 % (47-70); Platelet Count 304 K/mm3 (150-450); RBC Distribution Width CV 12.9 % (11.6-14.6); RBC Distribution Width SD 43.8 fl (35.1-43.9); Red Blood Count 4.55 M/mm3 (4.2-5.4); White Blood Count 7.8 K/mm3 (4.4-11.0)
== END | disposition home or self-care (01) ==
LOC: MTLAB 13:38
PROVIDERS: PCP Internal Medicine; Referring Provider Internal Medicine Gastroenterology; Visit Provider Internal Medicine Gastroenterology
DX: K51.90 Ulcerative colitis, unspecified, without complications (principal)
CPT/HCPCS: 36415; 85025; 86140

== ENCOUNTER 2025-03-04 10:22 | Emergency (ER) | payer MEDICARE, OTHER, SELFPAY ==
[2025-03-04] VITALS (12 sets, daily range): BP systolic 126–167; BP diastolic 79–97; PULSE 66–110; RESP 14–20; TEMP 36.6–36.8; O2SAT 96–100; BMI 29.9
--- NOTE | 2025-03-04 10:31 | EKG12_ITS ---
Test Reason : PALPS Blood Pressure : */* mmHG Vent. Rate : 94 BPM Atrial Rate : 94 BPM P-R Int : 186 ms QRS Dur : 84 ms QT Int : 356 ms P-R-T Axes : 33 -2 38 degrees QTcB Int : 445 ms Normal sinus rhythm Normal ECG Confirmed by MABLE GALAVIZ, ANIBAL ([id number]), news copy editor ARGELIA HENDRIX ([id number]) on 03/07/2025 10:30:41 AM Referred By: Confirmed By: ANIBAL AKINS MD
--- NOTE | 2025-03-04 10:31 | EKG12_ITS ---
Test Reason : PALPS Blood Pressure : */* mmHG Vent. Rate : 94 BPM Atrial Rate : 94 BPM P-R Int : 186 ms QRS Dur : 84 ms QT Int : 356 ms P-R-T Axes : 33 -2 38 degrees QTcB Int : 445 ms Normal sinus rhythm Normal ECG Confirmed by MABLE GALAVIZ, ANIBAL ([id number]), general expeditor ARGELIA HENDRIX ([id number]) on 03/07/2025 10:30:41 AM Referred By: Confirmed By: ANIBAL AKINS MD
--- NOTE | 2025-03-04 10:32 | ED.RN ---
PT ON METOPROLOL HR BASELINE 60'S/ PT 110'S-120'S, SWEATY NAUSEA, DIZZINESS
--- NOTE | 2025-03-04 10:32 | ED.RN ---
PT ON METOPROLOL HR BASELINE 60'S/ PT 110'S-120'S, SWEATY NAUSEA, DIZZINESS
--- NOTE | 2025-03-04 10:40 | RAD_ITS ---
PROCEDURE: CHEST 1 VIEW (PORTABLE) 03/04/2025 REASON FOR EXAM: CHEST PAIN TECHNIQUE: Frontal view of the chest. COMPARISON: 08/03/2021 FINDINGS: Normal mediastinum. Lungs and pleural spaces are clear. No edema RAD/Chest 1 View (Portable) IMPRESSION: No acute disease Reading [facility]
--- NOTE | 2025-03-04 10:40 | RAD_ITS ---
PROCEDURE: CHEST 1 VIEW (PORTABLE) 03/04/2025 REASON FOR EXAM: CHEST PAIN TECHNIQUE: Frontal view of the chest. COMPARISON: 08/03/2021 FINDINGS: Normal mediastinum. Lungs and pleural spaces are clear. No edema RAD/Chest 1 View (Portable) IMPRESSION: No acute disease Reading Location[facility]
[2025-03-04 10:42] LABS: Hematocrit 43.2 % (37-47); Hemoglobin 14.6 g/dL (12.0-15.0); Immature Granulocytes Count 0.010 X10^3/uL (0.0-0.0); Mean Corp Hgb Conc 33.8 g/dL (32-36); Mean Corpuscular Volume 90.9 fL (81-99); Mean Platelet Vol. 10.2 fl (6.2-12.0); NRBC Flagged by Analyzer 0 % (0-5); Platelet Count 285 K/mm3 (150-450); RBC Distribution Width CV 13.0 % (11.6-14.6); RBC Distribution Width SD 42.8 fl (35.1-43.9); Red Blood Count 4.75 M/mm3 (4.2-5.4); White Blood Count 6.8 K/mm3 (4.4-11.0)
--- NOTE | 2025-03-04 11:12 | EDS_ITS ---
<Statement entered by Chance Clements DO - 03/04/25 16:06> Patient was seen and examined with physician recycling assistant Daylin All components of the history and physical confirmed and agreed. History of present illness and physical exam: Patient is a 79-year-old female with past medical history of hypertension, hyperlipidemia, PVCs, hypothyroidism who presented to the emergency department chief complaint of palpitations. States that around 9:30 AM she was doing cleaning the house and noted that she felt like her heart was racing. She states that she felt that tightness associated with this and lightheadedness as well as some shortness of breath. She states that she sat down she is able to make to the table and her symptoms did improve. She states that she developed tunnel vision with the symptoms as well. Patient denies any recent travel history denies history of blood clots. She states that her heart rates at home was around 200 when this occurred. Review of systems: Agree with above Physical exam: Agree with above MDM Patient is a 79-year-old female who presented to the emergency department chief complaint of palpitations, lightheadedness and shortness of breath. On the differential diagnose includes but not limited to ACS, supraventricular tachycardia, atrial fibrillation with rapid ventricular sponsor, atrial flutter, electrolyte abnormality. Once workup is obtained reviewed she will be reevaluated. Patient CBC reviewed showed no evidence leukocytosis white was count normal at 6.8, hemoglobin 14.6, plate count was noted be 285. Patient sodium was 140, potassium of 4.1, creatinine was 0.76. Patient magnesium level normal at 2, troponin was 12 with a delta troponin of 20 TSH normal at 1.10. Patient chest x-ray reviewed by myself by radiology showed no acute cardiopulmonary processes. Patient's EKG reviewed showed sinus rhythm with a rate of 94 bpm. Daylin did speak with deputy brand inspector on-call Dr. Boo who states that the patient can have Holter monitor and follow-up in the outpatient setting with them. Patient is feeling much better is agreeable with this plan all course concerns answered she was discharged home in stable condition. Final impression: Shortness of breath Palpitations, Lightheadedness Disposition: Patient will be discharged home in stable condition Supervising attending attestation: Chance Clements D.O. [facility] History of Present Illness Chief Complaint: Palpitations Narrative Narrative: 79-year-old female with PMH of HTN, HLD, PVCs, hypothyroidism presents with palpitations. Around 9:30 AM she was doing minor housekeeping and started to feel her heart race. She had a warped feeling in her chest which she describes as a funny feeling but not chest pain and felt slightly short of breath. She sat down and rested and symptoms seem to improve. She then went up a flight of steps and the palpitations returned again. She started to see tunnel vision and sat down and this resolved and she denies syncope. She put her pulse oximeter on and states her HR was 102 and her pulse ox was 97%. She felt nauseated on the way to the emergency department. Now all symptoms have resolved. She sees Dr. Dell ferguson for history of PVCs and takes metoprolol once daily in the morning but has no other cardiac history. [facility] Medical History COVID (03/01/22) Wears contact lenses Thyroid disease Arthritis Ulcerative colitis Non-smoker Biliary colic Cholelithiasis with chronic cholecystitis Multiple premature ventricular complexes Hypothyroidism Hyperlipidemia Essential (primary) hypertension Intraductal papilloma of left breast GERD (gastroesophageal reflux disease) Osteoarthritis Back pain Home Medications ?Medication ?Instructions ?Recorded ?Last Taken ?Type losartan 50 mg tablet 50 mg PO BID 09/18/17 History metoprolol succinate 50 mg 50 mg PO DAILY 09/18/17 History tablet,extended release 24 hr levothyroxine 25 mcg capsule 25 mcg PO DAILY 12/19/20 08/16/21 History mercaptopurine 50 mg tablet 50 mg PO DAILY 12/19/20 Un known History omeprazole 20 mg capsule,delayed 20 mg PO DAILY 08/16/21 History release cholecalciferol (vitamin D3) 25 25 mcg PO DAILY Unknown History mcg (1,000 unit) capsule mesalamine 0.375 gram 1.5 g PO DAILY 03/22/22 Unkn own History capsule,extended release 24 hr pravastatin 10 mg tablet 10 mg PO DAILY 03/15/24 Unkn own History Allergy/AdvReac Type Severity Reaction Status Date / Time Penicillins Allergy Mild rash Verified 03/04/25 10:22 Sulfa (Sulfonamide Allergy Mild rash Verified 07/04/25 10:22 Antibiotics) pravastatin AdvReac myalgia Verified 03/04/25 10:22 Family History Father Diabetes Heart disease Hypertension Sudden cardiac Mother Diabetes Heart disease Hypertension CAD (coronary artery disease) CABG Brother CAD (coronary artery disease), Onset Age: 40 CABG Surgical History History of cholecystectomy (08/2021) History of hysterectomy History of left heart catheterization (10/08/02) History of colonoscopy History of partial thyroidectomy History of lumpectomy H/O laminectomy Social History Smoking Status: Never smoker alcohol intake: never substance use type: does not use ROS ROS ED ROS Narrative Constitutional: Negative for fever, chills, malaise. CVS: Positive for palpitations. No chest pain. Respiratory: Negative for cough, orthopnea. GI: Negative for abdominal pain, vomiting, diarrhea, melena, hematochezia. : Negative for dysuria, hematuria or frequency. EXAM Physical Exam Narrative Exam Narrative: CONST: Patient sitting in no acute distress. EYES: Normal inspection. NECK: Normal inspection. RESP: No respiratory distress, CTAB. CVS: Regular rate and rhythm, no murmur, no gallop. SKIN: Color normal, no rash, warm, dry, intact. EXTREMITIES: Normal appearance, no pedal edema. NEURO: Alert and answering questions appropriately. PSYCH: Normal affect. Const Vital Signs: 03/04/25 10:22 03/04/25 10:31 03/04/25 12:05 Temperature 97.8 F Temperature Source Oral Pulse Rate 110 H Pulse Rate [Lying] 79 Pulse Rate [Sitting (for 1 minute prior to obtaining)] 82 Pulse Rate [Standing (for 1 minute prior to obtaining)] 92 Respiratory Rate 16 Blood Pressure 163/95 H Blood Pressure [Lying] 141/81 H Blood Pressure [Sitting (for 1 minute prior to obtaining)] 146/92 H Blood Pressure [Standing (for 1 minute prior to obtaining)] 126/85 H Blood Pressure Mean 117 Blood Pressure Mean [Lying] 101 Blood Pressure Mean [Sitting (for 1 minute prior to obtaining)] 110 Blood Pressure Mean [Standing (for 1 minute prior to obtaining)] 98 Pulse Ox 100 99 Oxygen Delivery Method Room Air Room Air 03/04/25 12:09 03/04/25 13:00 03/04/25 13:50 Temperature Temperature Source Pulse Rate 93 71 70 Pulse Rate [Lying] Pulse Rate [Sitting (for 1 minute prior to obtaining)] Pulse Rate [Standing (for 1 minute prior to obtaining)] Respiratory Rate 17 20 H 16 Blood Pressure 126/85 H 158/79 H Blood Pressure [Lying] Blood Pressure [Sitting (for 1 minute prior to obtaining)] Blood Pressure [Standing (for 1 minute prior to obtaining)] Blood Pressure Mean 98 105 Blood Pressure Mean [Lying] Blood Pressure Mean [Sitting (for 1 minute prior to obtaining)] Blood Pressure Mean [Standing (for 1 minute prior to obtaining)] Pulse Ox 97 99 99 Oxygen Delivery Method Room Air Room Air 03/04/25 14:00 03/04/25 14:15 03/04/25 14:30 Temperature Temperature Source Pulse Rate 70 75 Pulse Rate [Lying] Pulse Rate [Sitting (for 1 minute prior to obtaining)] Pulse Rate [Standing (for 1 minute prior to obtaining)] Respiratory Rate 16 17 Blood Pressure 154/81 H 155/81 H 139/82 H Blood Pressure [Lying] Blood Pressure [Sitting (for 1 minute prior to obtaining)] Blood Pressure [Standing (for 1 minute prior to obtaining)] Blood Pressure Mean 101 95 99 Blood Pressure Mean [Lying] Blood Pressure Mean [Sitting (for 1 minute prior to obtaining)] Blood Pressure Mean [Standing (for 1 minute prior to obtaining)] Pulse Ox 99 97 Oxygen Delivery Method Room Air 03/04/25 14:45 03/04/25 15:00 03/04/25 15:21 Temperature 98.2 F Temperature Source Pulse Rate 75 68 66 Pulse Rate [Lying] Pulse Rate [Sitting (for 1 minute prior to obtaining)] Pulse Rate [Standing (for 1 minute prior to obtaining)] Respiratory Rate 19 H 17 14 Blood Pressure 153/97 H 167/82 H 162/90 H Blood Pressure [Lying] Blood Pressure [Sitting (for 1 minute prior to obtaining)] Blood Pressure [Standing (for 1 minute prior to obtaining)] Blood Pressure Mean 112 106 114 Blood Pressure Mean [Lying] Blood Pressure Mean [Sitting (for 1 minute prior to obtaining)] Blood Pressure Mean [Standing (for 1 minute prior to obtaining)] Pulse Ox 97 96 Oxygen Delivery Method Room Air MDM MDM MDM Narrative Medical decision making narrative: Differential includes but not limited to SVT, A-fib, electrolyte derangement, th yroid disease Consults: Cardiology 79-year-old female had palpitations, nausea, and shortness of breath this morning which resolved. She reports her heart rate at home was 202 bpm during the episode. She appears well nontoxic. She was hypertensive at 163/95, tachycardic at 110, otherwise normal vital signs. During my exam and when EKG was obtained she is in normal sinus rhythm in the 90s. Her exam is benign. CBC and BMP are unremarkable. TSH WNL. Serial troponins are 12 and 20. CXR shows no acute process. She had a slight rise in her troponin but never had chest pain with this episode and I suspect it was rate related if her heart was really over 200 bpm. Her orthostatic vital signs were positive with a 20 point drop in the systolic pressure so she was given IV fluids. I discussed the case with on- call deputy brand inspector, Dr. Boo, who advised to place a Holter monitor and have her follow-up in the cardiology office on Friday. Holter monitor was provided and patient given return precautions. She was discharged in stable condition. History & Record Review Discussion w/independent historian: Patient Additional record(s) reviewed:: Prior ED visit and Prior labs Lab Data Attestation: I reviewed the patient's lab results. Labs: Laboratory Results - last 24 hr 03/04/25 03/04/25 03/04/25 10:30 11:02 13:12 WBC 6.8 RBC 4.75 Hgb 14.6 Hct 43.2 MCV 90.9 MCH 30.7 MCHC 33.8 RDW Std Deviation 42.8 RDW Coeff of [place]cadio 13.0 Plt Count 285 MPV 10.2 Immature Gran % (Auto) 0.100 Neut % (Auto) 64.8 Lymph % (Auto) 23.2 [place]go % (Auto) 9.0 Eos % (Auto) 2.3 Baso % (Auto) 0.6 Absolute Neuts (auto) 4.4 Absolute Lymphs (auto) 1.58 Nucleated RBC % 0 Sodium Cancelled 140 Potassium Cancelled 4.1 Chloride Cancelled 106 Carbon Dioxide Cancelled 22.5 Anion Gap Cancelled 11 BUN Cancelled 18 Creatinine Cancelled 0.76 Estim Creat Clear Calc Cancelled 55.61 Est GFR (MDRD) Non-Af Cancelled 80 BUN/Creatinine Ratio Cancelled 23.7 H Glucose Cancelled 117 H Calcium Cancelled 9.4 Magnesium 2.0 Troponin T High Sens Cancelled 12 Troponin T Hi Sens 2 Hr 20 H TSH 1.100 Radiography Diagnostic Testing: Clinical Impression(s) from Imaging Studies Chest X-Ray 03/04/25 10:40 IMPRESSION: No acute disease
[2025-03-04 11:34] LABS: Anion Gap 11 (5-15); BUN 18 mg/dL (4-19); BUN/Creat Ratio 23.7 RATIO (10-20); Calcium,Total 9.4 mg/dL (7.6-11.0); Carbon Dioxide 22.5 mmol/L (21.0-32.0); Chloride 106 mmol/L (98-108); Estimated Creatinine Clearance 55.61 ml/min (50-250); Glucose 117 mg/dL (70-99); Potassium 4.1 mmol/L (3.3-5.1); Troponin T High Sensitivity 12 ng/L (<=14)
[2025-03-04 11:57] LABS: Magnesium 2.0 mg/dL (1.5-2.2)
[2025-03-04] MEDS: 0.9% Normal Saline (1000mL) 1,000 ML 999 ML IV (12:20)
[2025-03-04 14:37] LABS: Troponin T High Sens 2 HR 20 ng/L (<=14)
== END 2025-03-04 15:44 | disposition home or self-care (01) ==
PROVIDERS: Physician Assistant; Emergency Provider Emergency Medicine; PCP Internal Medicine; Visit Provider Emergency Medicine
DX: R06.02 Shortness of breath (principal); R00.2 Palpitations; R42 Dizziness and giddiness; I95.1 Orthostatic hypotension; Z86.16 Personal history of COVID-19
CPT/HCPCS: 71045; 80048; 83735; 84443; 84484; 85025; 93005; 96360; 99285; A4216

== ENCOUNTER → 2025-03-04 | Outpatient (CLI) | payer MEDICARE, OTHER, SELFPAY | END | disposition home or self-care (01) | LOC: PSN 15:22 | PROVIDERS: PCP Internal Medicine; Visit Provider Emergency Medicine | DX: Z00.00 Encounter for general adult medical examination without abnormal findings (principal) ==

== ENCOUNTER → 2025-05-20 | Outpatient (CLI) | payer MEDICARE, OTHER, SELFPAY ==
--- NOTE | 2025-05-20 17:10 | STRESSREP ---
Stress Test Report Exercise myocardial perfusion stress test. 79-year-old lady with a history of elevated calcium score. Stress protocol: Resting EKG demonstrates normal sinus rhythm with a rate of 62 bpm resting blood pressure is 130/80 mmHg. The patient exercised according to the regular Diego protocol for a total duration of 6 minutes attaining a maximum heart rate of 148 bpm which was 103% of maximum predicted heart rate; the maximum workload was 7 metabolic equivalents. At rest there were no ST or T wave changes noted to suggest ischemia and at peak exercise upsloping ST changes only were noted which did not meet the criteria for ischemia. No clinical angina was noted the test was terminated due to the target heart rate being achieved/fatigue. The peak blood pressure was 182/82 mmHg. Rate-pressure product was 27,000. Myocardial perfusion protocol. 12 mCi of technetium 99m sestamibi was injected at rest. The patient exercised according to regular Diego protocol for total duration of 6 minutes and at peak exercise 35.4 mCi of technetium 99m sestamibi was injected stress images were obtained stress and rest images were reconstructed in comparing the short axis vertical long and horizontal long axis. Gated images were also obtained. Perfusion SPECT analysis: Review of the stress images demonstrate normal uptake of tracer noted in all areas of the myocardium. The resting images similarly demonstrate normal uptake of tracer noted in all areas of the myocardium. No areas of reversibility are noted to suggest ischemia no previous infarct was noted. Gated SPECT analysis: The gated ejection fraction is 71%. Conclusion: Normal exercise myocardial perfusion stress test at a moderate workload.
== END | disposition home or self-care (01) ==
LOC: CVS 06:13
PROVIDERS: PCP Internal Medicine; Referring Provider Physician Assistant Medical; Visit Provider Physician Assistant Medical
DX: I25.10 Atherosclerotic heart disease of native coronary artery without angina pectoris (principal); R93.1 Abnormal findings on diagnostic imaging of heart and coronary circulation; R79.89 Other specified abnormal findings of blood chemistry
CPT/HCPCS: 78452; 93017; A9500; A4216

== ENCOUNTER → 2025-06-21 | Outpatient (CLI) | payer MEDICARE, OTHER, SELFPAY ==
--- NOTE | 2025-06-21 09:16 | BI_ITS ---
EXAM: SCRN MAMM (CAD)W/OLIMPIA BILAT DATE: 06/21/2025 CLINICAL HISTORY: F, Age 79 y/o , SCREENING TECHNIQUE: Procedure Code: [id number] Modality: MG Procedure: SCRN MAMM (CAD)W/OLIMPIA BILAT COMPARISON: Prior exam(s) were compared FINDINGS: TISSUE DENSITY: The breasts are heterogeneously dense, which may obscure small masses. Bilateral Breast Mammographic Findings: No suspicious masses, calcifications or other abnormalities are identified. Postsurgical changes in the left breast. BI/SCRN MAMM (CAD)W/OLIMPIA BILAT IMPRESSION: No mammographic evidence of malignancy in either breast. OVERALL FINAL ASSESSMENT BI-RADS 2: BENIGN RECOMMENDATION: Routine annual follow-up in 1 Year Additional Recommendation none A letter with findings and recommendations will be mailed to the patient. Reading Location: [id number]
--- NOTE | 2025-06-21 09:21 | BD_ITS ---
PROCEDURE: DEXA BONE DENSITY STUDY 06/21/2025 REASON FOR EXAM: F, age 79 y/o . Postmenopausal. TECHNIQUE: Procedure Code: BDDBD Modality: DX Procedure: DEXA BONE DENSITY STUDY COMPARISON: Prior study dated November 27, 2022. FINDINGS: BMD and T-SCORES Lumbar spine: 0.843 g/cm2, T-score -1.9 Levels: L1 through L4 Change from prior: Improvement of 1.7%. Left femoral neck: 0.696 g/cm2, T-score -1.4 Femoral neck comparison data not recommended for monitoring change. Prior T-score loss of 2.5% Left total hip: 0.691 g/cm2, T-score -1.4 Right femoral neck: 0.782 g/cm2, T-score -1.3 Femoral neck comparison data not recommended for monitoring change. Prior T-score loss of 1.8% The World Health Organization has defined the following categories based on bone density: Normal bone density: T-score equal to or greater than -1.0 Osteopenia: T-score between -1.0 and -2.5 Osteoporosis: T-score equal to or less than -2.5 FRAX (or Comparable) Fracture Risk Assessment: 10 Year Probability of Fracture: Major Osteoporotic Fracture: 18% Hip Fracture: 4.4% (Note: FRAX is not to be reported in setting of normal range bone density, osteoporosis on DEXA, known history of osteoporosis, prior osteoporotic hip or vertebral fracture, or for any patient undergoing pharmacological treatment for bone loss.) The National Osteoporosis Foundation (NOF) recommends pharmacological treatment for patients with a FRAX 10-year risk of 3% or higher for a hip fracture, or 20% or higher for a major osteoporotic fracture, to prevent osteoporosis and reduce fracture risk. The patient does meet the pharmacological treatment recommendations for prevention of osteoporosis. BD/Dexa Bone Density Study IMPRESSION: OSTEOPENIA. Recommend follow-up as clinically warranted. Reading Location: [place] [id number]
== END | disposition home or self-care (01) ==
LOC: OPBD 09:15
PROVIDERS: PCP Internal Medicine; Referring Provider Internal Medicine; Visit Provider Internal Medicine
DX: Z12.31 Encounter for screening mammogram for malignant neoplasm of breast (principal); Z78.0 Asymptomatic menopausal state
CPT/HCPCS: 77063; 77067; 77080